=== PATIENT | male | born 1960 | race Caucasian/White ===

== ENCOUNTER → 2016-12-11 | Outpatient (CLI) | payer OTHER ==
[~2016-12-11] VITALS: Ht 175.3 cm; Wt 71.8 kg
[~2016-12-11] MED LIST: AMBIEN 10 MG TA10 MG PO; AMBIEN 5 MG TABL5 M1 PO; ASA81BEC; EMBEDA ER 50-21 EACH PO; FENTANYL PA50 MCG/HR TRANSDERM; FLOMAX0.4 MG PO; LEVOTHYROXIN0.025 MG PO; LEXAPRO20 MG PO; LIDODERM 5%1 PATC1 TRANSDERM; LYRICA 75 MG CA75 MG PO; LYRICA150 MG PO; METHADONE HCL 110 M1 PO; METOPROLOL SUCC25 M1 PO; MIRTAZAPINE15 M2 PO; NEXIUM40 MG PO; OXYCODONE PO; OXYCODONE-ACET1 EAC2 PO; OXYCODONE-ACET1 EACH PO; OXYCONTIN20 M1 PO; OXYCONTIN30 MG PO; OXYCONTIN60 MG PO; PROAIR HFA8.5 GM; REMERON15 MG PO; ROBAXIN 750 MG750 M1 PO; TOPAMAX 25 MG T25 M1 PO; TOPAMAX100 MG PO; TRAZODONE HCL50 MG PO; VENTOLIN HFA 1818 GM INH; ZOLOFT50 MG PO
--- NOTE | ~2016-12-11 | HPC ---
[facility] [place] [address] PAIN MANAGEMENT CONSULTATION Name: LYLY BHARDWAJ Room #: REG [facility] Mami.#: [id number] Admission: 12/11/16 Attend Phys: Lenin Cedeno MD Discharge: Date of : 60 Report #: [id number] THIS REPORT FOR: //name// CC: Arvind Cedeno DATE OF SERVICE: 12/11/2016 Followup visit for cervical radiculopathy. The patient has had 2 anterior cervical diskectomies and fusions. First was a 3-level fusion; C3, C4 and C5. The second was a C7-T1 fusion. He has had persistent pain in his neck with radiating symptoms down into the shoulders and arms. Pain is severe; today, it is 7/10. He has had previous success with epidural injections when the pain becomes severe. He is having difficulty with the use of his arms. Comorbidities include hypertension, angina, dyspnea on exertion, headaches, history of depression and nervousness and COPD. He has a pain stimulator for occipital neuralgia. MEDICATIONS: OxyContin 30 mg b.i.d., albuterol, levothyroxine, Lyrica 75 mg t.i.d., zolpidem, sertraline, omeprazole, tamsulosin, Topamax and metoprolol. PHYSICAL EXAMINATION: GENERAL: This is a very pleasant, easygoing gentleman. He is here today with his . He answers questions clearly. He does not appear overmedicated. He is in some distress. VITAL SIGNS: His blood pressure is 127/77, heart rate 70 and respirations 16. Five feet 9, 158 pounds. BMI is 23. NEUROLOGIC: He moves from a sitting to standing position, ambulates with antalgic features. He has mild spasticity. NECK: Examination of the neck reveals decreased range of motion in flexion, extension and rotation. He has tenderness posteriorly. There is a reduction in range of motion with lateral tilt. CHEST: Clear to auscultation. CARDIAC: Regular rate and rhythm. EXTREMITIES: Free of edema. Peripheral pulses are difficult to palpate. He has hyperreflexia in the lower extremities on the right to clonus. He is hyperreflexic on the left, without clonus. IMPRESSION: Cervicalgia with neuropathy, status post anterior cervical diskectomy and fusion. He now also has cervical radicular symptoms radiating down into the arms and shoulders. RECOMMENDATIONS: [address] [address] PAIN MANAGEMENT CONSULTATION Name: LYLY BHARDWAJ Room #: REG CLI [facility]#: [id number] Admission: 12/11/16 Attend Phys: Lenin Cedeno MD Discharge: Date of : 60 Report #: [id number] 1. I would like to take him off of OxyContin and try him on methadone 10 mg, one to one-half tablets daily is an initiating dose. We will adjust dose as necessary following. 2. Cervical epidural injection under fluoroscopic guidance. DESCRIPTION OF PROCEDURE: He was taken to the fluoroscopic suite for treatment and placed prone. Skin prepped with ChloraPrep. Skin anesthetized over C7-T1. A 20-gauge Tuohy epidural needle was advanced in the epidural space using loss of resistance. An excellent epidurogram was achieved with 1 mL of Omnipaque and then I followed that with 3 mL of 0.5% lidocaine mixed with 80 mg of triamcinolone. He tolerated the procedure well. He was taken to the recovery room for short observation. His pain score was 0 at discharge. He will call the clinic with any questions about dosing with his methadone. He is to stop his OxyContin today and initiate his methadone immediately. We will follow up carefully in 1 month. By: [id number] Lenin Cedeno MD /nt
[2016-12-11 09:05] VITALS: BP 126/77
== END | disposition home or self-care (01) ==
LOC: PAIN 06:39
DX: M54.12 Radiculopathy, cervical region (principal); I10 Essential (primary) hypertension; F32.9 Major depressive disorder, single episode, unspecified; J44.9 Chronic obstructive pulmonary disease, unspecified; M54.81 Occipital neuralgia; F17.210 Nicotine dependence, cigarettes, uncomplicated; Z98.890 Other specified postprocedural states

== ENCOUNTER → 2017-01-08 | Outpatient (CLI) | payer OTHER ==
[~2017-01-08] VITALS: Ht 175.3 cm; Wt 72.6 kg
--- NOTE | ~2017-01-08 | EKG ---
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
--- NOTE | ~2017-01-08 | HPC ---
[facility] [address] [place] [address] PAIN MANAGEMENT CONSULTATION Name: LYLY BHARDWAJ [facility] [id number] Admission: 01/08/17 Attend Phys: Lenin Cedeno MD Discharge: Date of : 60 Report #: [id number] THIS REPORT FOR: //name// CC: IDALMIS Cedeno DATE OF SERVICE: 01/08/2017 Followup visit for cervical radiculopathy, chronic. The patient returns to pain clinic today and is doing extremely well. I took him off of long-acting oxycodone and placed him on methadone. Our initial dose looked was perfect. One 10 mg tablet in the morning, 5 mg at noon and one in the evening. With that, his pain has been reduced by 80%. He has denied any significant side effects. He has taken no additional breakthrough medication. He continues on Lyrica, but would like to taper off of that given his good response to initiation of methadone. We had given him 50 mg tablet to start with twice a day, then once a day and then off. During that trial of tapering he can determine whether the combination of medications is providing good relief. The patient scores his pain today to 7, but it is a new pain. He apparently tripped fell and hit himself on the chest where he has a battery for his suboccipital stimulator. I think he sustained contusion to the ribcage and that is the only place that he has pain right now. His typical neck and shoulder pain is practically nonexistent. MEDICATIONS: In addition to methadone as described above and the Lyrica at 75 mg t.i.d. include mirtazapine, zolpidem, sertraline, omeprazole, tamsulosin, Topamax, metoprolol. PHYSICAL EXAMINATION: GENERAL: He looks great. He has got a haircut. He is well groomed. VITAL SIGNS: His blood pressure is 159/90, heart rate 64. BMI 23.6. NEUROLOGIC: Cervical range of motion is performed without increasing pain in the neck, there is minimal tenderness over the neck. He has some pain radiating down into both arms, but this is dull and moderate. Good range of motion of the arms and shoulders joints is noted. His chest is clear with bradycardia. Localized tenderness of the chest wall is noted. This is just below his pulse generator in the left chest. EXTREMITIES: Free of edema. Continues to show hyperreflexia in the lower extremities bilaterally. IMPRESSION: 1. Cervicalgia with myelopathy, status post anterior cervical diskectomy and [address] [address] PAIN MANAGEMENT CONSULTATION Name: LYLY BHARDWAJ Room #: REG [facility] ElsaEliane#: [id number] Admission: 01/08/17 Attend Phys: Lenin Cedeno MD Discharge: Date of : 60 Report #: [id number]. 2. Initiation of methadone and high-risk medication. Management of high-risk medication with good response to methadone. An electrocardiogram was ordered, which showed no lengthening of the QT interval. 3. Contusion left chest wall. PLAN: 1. Continue methadone. 2. Follow up as needed in 3 months. 3. Opioid contract was reviewed, the importance of safeguarding all medications, taking medications as directed by one physician and one pharmacy. <ELECTRONICALLY SIGNED> By: Lenin Cedeno MD 01/30/17 1027 1537 0142 Lenin Cedeno MD /nt
[2017-01-08 11:11] VITALS: BP 159/90
== END | disposition home or self-care (01) ==
LOC: PAIN 06:45
DX: M54.12 Radiculopathy, cervical region (principal); G89.29 Other chronic pain; S20.212A Contusion of left front wall of thorax, initial encounter; F17.200 Nicotine dependence, unspecified, uncomplicated; X58.XXXA Exposure to other specified factors, initial encounter; Y93.89 Activity, other specified; Y92.89 Other specified places as the place of occurrence of the external cause; Y99.8 Other external cause status; Z98.890 Other specified postprocedural states

== ENCOUNTER → 2017-04-06 | Outpatient (CLI) | payer OTHER ==
[~2017-04-06] VITALS: Ht 175.3 cm; Wt 66.4 kg
[~2017-04-06] MED LIST changes: +NITROGLYCERIN0.4 MG SUBLING
--- NOTE | ~2017-04-06 | HPC ---
[facility] [address] [place] [address] PAIN MANAGEMENT CONSULTATION Name: LYLY BHARDWAJ Room #: REG [facility] Beronica#: [id number] Admission: 04/06/17 Attend Phys: Lenin Cedeno MD Discharge: Date of : 60 Report #: [id number] THIS REPORT FOR: //name// CC: Arvind Van DATE OF SERVICE: 04/06/2017 DATE OF REGISTRATION: 04/06/2017 Followup visit for cervical radiculopathy. It is repeat visit for patient. Pain at an intensity of 7/10 in his neck, radiating to his shoulders bilaterally. It radiates down into both arms. He has had 2 cervical level fusions, 2 level fusion at C3, C4, C5 as well as a single level fusion of C7-T1. I have provided him with injections in between these 2 levels of fusion with good success in alleviating symptoms of radiculopathy. He is here today for an injection. His last cervical injection was performed in November. Does not want to have an additional surgery. He has lost substantial weight and has complained of abdominal pain. His abdominal tenderness is well and is going to undergo a CT scan next week. Always concerned when a 57-year-old loses weight unexpectedly. He has longstanding history of use of tobacco and alcohol, may well be playing a role. I have asked for studies to be sent to our clinic. In addition to injections which have been helpful, I provide him with methadone for neuropathic pain and radiculopathy. His current daily dose is 25 mg taken as 10 mg, 5 mg, 10 mg in t.i.d. dosing. Issues of opioid safeguarding have been discussed in great length. He has an opioid agreement. Other medicines include pregabalin, mirtazapine, zolpidem, sertraline, omeprazole, tamsulosin, Topamax and Toprol-XL. PHYSICAL EXAMINATION: Pleasant easy going gentleman. Blood pressure is 140/74, heart rate is 50, respirations are 14. Chest is clear. His abdomen is very tender throughout. Examination of the upper extremities reveals some weakness with radiology receptionist, biceps and triceps. He has nearly normal reflexes in the lower extremities today, which is interesting since his previous reflexes were hyperreflexic. IMPRESSION: Cervical radiculopathy, status post 2-level fusion and 3-level fusion. RECOMMENDATIONS: Cervical epidural injection under fluoroscopic guidance. [address] [address] PAIN MANAGEMENT CONSULTATION Name: LYLY BHARDWAJ Room #: REG CLI Preet#: [id number] Admission: 04/06/17 Attend Phys: Lenin Cedeno MD Discharge: Date of : 60 Report #: [id number] DESCRIPTION OF PROCEDURE: He was taken to fluoroscopic suite for treatment, placed prone, skin prepped with ChloraPrep. Skin anesthetized over C6-C7. A 20-gauge Tuohy epidural needle advanced in the epidural space with loss of resistance technique. No blood or CSF aspirated. A 1 mL of Omnipaque injected with spread of dye observed in the epidural space followed by 3 mL of 0.5% lidocaine mixed with 80 mg of triamcinolone. He tolerated the procedure well. He was observed for 45 minutes and discharged. Follow up as needed. By: [id number] Lenin Cedeno MD /nt
[2017-04-06 10:06] VITALS: BP 102/66
== END ==
LOC: PAIN 06:38
DX: M54.12 Radiculopathy, cervical region (principal); I10 Essential (primary) hypertension; F17.200 Nicotine dependence, unspecified, uncomplicated; F32.9 Major depressive disorder, single episode, unspecified; Z98.1 Arthrodesis status; Z79.899 Other long term (current) drug therapy

== ENCOUNTER → 2017-07-09 | Outpatient (CLI) | payer OTHER ==
[~2017-07-09] VITALS: Ht 175.3 cm; Wt 62.3 kg
[~2017-07-09] MED LIST changes: +BAYER CHEWABLE81 MG PO; +REGLAN 10 MG TA10 MG PO
--- NOTE | ~2017-07-09 | HPC ---
[facility] [place] [address] PAIN MANAGEMENT CONSULTATION Name: LYLY BHARDWAJ Room #: REG CL Mami.#: [id number] Admission: 07/09/17 Attend Phys: Lenin Cedeno MD Discharge: Date of : 60 Report #: [id number] THIS REPORT FOR: //name// CC: Arvind Cedeno DATE OF SERVICE: 07/09/2017 Followup visit for management of chronic cervical pain with radiculopathy as well as low back pain with radiculopathy. The patient returns to pain clinic today in followup for medication management. He has had numerous spinal problems and I have followed him carefully for medication management. I have been concerned about weight loss and again today, we discussed this issue in some detail. I have asked for him to continue following closely with his primary care physician and monitoring his weight. He has had some studies done, although I have not been able to obtain the results of chest x-ray as well as an abdominal scan. He has also been checked for prostate cancer as well. He continues to receive reasonable pain relief from his medication. He is on methadone 10 mg 3 times daily for a total of 30 mg and this has provided pain relief for both the mechanical as well as neuropathic pain without significant side effects. I do not believe his weight loss is related to his opioid use. We have discussed alcohol at each visit. The combination of alcohol along with methadone should be avoided. MEDICATIONS: Other centrally acting medications include mirtazapine, pregabalin, zolpidem, sertraline. He takes omeprazole, levothyroxine, tamsulosin, Topamax and Toprol. Multiple medications and polypharmacy may be playing a role in his weight loss. PHYSICAL EXAMINATION: GENERAL: He is pleasant, alert and oriented. No signs of overmedication, depression or anxiety. The patient ____pleasant. Weight loss is evident. Weight is noted in the chart. VITAL SIGNS: Blood pressure is 135/80, heart rate is 65, respirations are 16. CHEST: Clear. ABDOMEN: Remains tender as it was at his previous visit. EXTREMITIES: He has weakness of the upper extremities, particularly with social service technician. Reflexes 2-3+ bilaterally upper and lower extremities. IMPRESSION: 1. Chronic intractable low back pain and cervical radiculopathy, status post multilevel fusion. [address] [address] PAIN MANAGEMENT CONSULTATION Name: LYLY BHARDWAJ [facility] #[facility] [place]#: [id number] Admission: 07/09/17 Attend Phys: Lenin Cedeno MD Discharge: Date of : 60 Report #: [id number] 2. Management of high risk medication. PLAN: I have renewed his medications for 3 months under terms of our opioid agreement. We stressed the importance of safeguarding all medications and I have reviewed with him the CDC guidelines and his opioid agreement. He will safely use his medicines and we will try to assist with any recognized side effects. Follow up in 3 months. By: 1243 1332 Lenin Cedeno MD /oc
[2017-07-09 12:50] VITALS: BP 132/73
== END | disposition home or self-care (01) ==
LOC: PAIN 06:16
DX: M54.12 Radiculopathy, cervical region (principal); F17.210 Nicotine dependence, cigarettes, uncomplicated

== ENCOUNTER 2017-07-23 13:09 | Emergency (ER) | payer OTHER ==
[~2017-07-23] VITALS: Ht 175.3 cm; Wt 61.2 kg
--- NOTE | ~2017-07-23 | EKG ---
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
[~2017-07-23 13:09] MED LIST changes: -REGLAN 10 MG TA10 MG PO
[2017-07-23 14:14] LABS: BASOPHILS 0.4 % (0.0-2.0); EOSINOPHILS 2.6 % (0.0-3.0); HEMATOCRIT 39.7 % (42.0-52.0); HEMOGLOBIN 13.8 gm/dL (14.0-18.0); MCH 33.1 pg (26.0-34.0); MCHC 34.8 g/dL (28.0-37.0); MCV 95.1 fL (80.0-100.0); PLATELET COUNT 121 thou/uL (150-400); RBC 4.17 mil/uL (4.50-6.00); RDW 13.7 % (10.5-14.5); WBC 6.6 thou/uL (4.0-11.0)
[2017-07-23 14:15] LABS: MANUAL DIFF NO
[2017-07-23 14:30] LABS: ANION GAP 2 mmol/L (7-16); BUN 11 mg/dL (7-18); CALCIUM 8.6 mg/dL (8.5-10.1); CHLORIDE 105 mmol/L (98-107); CO2 29 mmol/L (21-32); CREATININE 0.8 mg/dL (0.7-1.3); GLUCOSE 107 mg/dL (74-106); POTASSIUM 3.8 mmol/L (3.5-5.1); SODIUM 136 mmol/L (136-145)
[2017-07-23 14:39] LABS: ALBUMIN 3.3 g/dL (3.4-5.0); ALKALINE PHOSPHATASE 67 U/L (46-116); SGOT 12 U/L (15-37); SGPT 18 U/L (30-65); TOTAL BILIRUBIN 0.3 mg/dL (<0.1-1.0); TOTAL PROTEIN 6.2 g/dL (6.4-8.2); TROPONIN-I < 0.04 ng/mL (<0.04-0.07)
[2017-07-23] MEDS ORDERED: REGLAN 10 MG TA10 MG PO ×2 (15:56→15:57)
== END 2017-07-23 16:09 | disposition home or self-care (01) ==
LOC: ER 13:09
PROVIDERS: Physician Assistant
DX: G89.29 Other chronic pain (principal); R13.10 Dysphagia, unspecified; F17.210 Nicotine dependence, cigarettes, uncomplicated; I10 Essential (primary) hypertension; E78.5 Hyperlipidemia, unspecified; J44.9 Chronic obstructive pulmonary disease, unspecified; Z88.0 Allergy status to penicillin; Z98.890 Other specified postprocedural states; Z95.9 Presence of cardiac and vascular implant and graft, unspecified

== ENCOUNTER → 2017-10-15 | Outpatient (CLI) | payer OTHER ==
[~2017-10-15] VITALS: Ht 175.3 cm; Wt 64.0 kg
[~2017-10-15] MED LIST changes: +REGLAN 10 MG TA10 MG PO
--- NOTE | ~2017-10-15 | HPC ---
[facility] [address] [address] PAIN MANAGEMENT CONSULTATION Name: LYLY BHARDWAJ Room #: REG [facility].#: [id number] Admission: 10/15/17 Attend Phys: Lenin Cedeno MD Discharge: Date of : 60 Report #: [id number] THIS REPORT FOR: //name// CC: Dr. Arvind Cedeno DATE OF SERVICE: 10/15/2017 Follow up visit for chronic intractable cervicalgia with radiculopathy status post anterior cervical diskectomy and fusion at 2 levels. The patient returns to pain clinic today for treatment of his cervical condition. In addition to providing with intermittent epidural injections in his neck, I provided him also with pain medication, which he has used cautiously and carefully. He has had 2 previous cervical epidural injections this year with good benefit. He also has a spinal cord stimulator, which has been used effectively for low back pain. The medication I provided for him is methadone. It has worked well with his neuropathic features 10 mg taken 2-1/2 tablets a day. I have agreed to increase that to 3 tablets a day for a total of 30 mg. He shown no misuse or abuse and has no significant side effects. He is on a written opioid agreement and has been periodically tested for other substances. I have talked to him often about safeguarding his medications, which he does. Medications were all reviewed and reconciled. There are other centrally acting medications. He has been given precautions about combinations and driving. His weight is down. He does not appear obese. BMI is 20.8. We have talked a bit about nutrition. He does not smoke and he remains active. He has some osteoarthritis that is managed with his medication, mostly in his upper extremities, shoulders, but some in his hips and knees as well. PHYSICAL EXAMINATION: He is a pleasant, outgoing jesús. He is alert and oriented, always positive. He has no signs of overmedication, depression or anxiety. Noted weight loss from previous visits was discussed and he is stabilized. His blood pressure is 102/62, heart rate 61. Moves from a sitting to standing position without difficulty. His ambulation is stable. His neck range of motion is markedly limited in flexion, extension and rotation. He has scars on his anterior neck from 2 previous diskectomies. He has cervical radicular symptoms with generalized weakness and pain into both arms that follows C6-C7 distribution. Reflexes 2-3+ bilaterally in upper and lower extremities. IMPRESSION: [facility] [address] [place] [address] PAIN MANAGEMENT CONSULTATION Name: LYLY BHRADWAJ Room #: REG CLI [facility]#: [id number] Admission: 10/15/17 Attend Phys: Lenin Cedeno MD Discharge: Date of : 60 Report #: [id number] 1. Chronic intractable low back pain. 2. Cervical radiculopathy, now more severe with radiating pain into both arms involving the C6-C7 distribution. 3. Management of high risk medication methadone. Time spent in consultation this morning was 25 minutes. PROCEDURE PERFORMED: Epidural steroid injection under fluoroscopic guidance. He was taken to fluoroscopic suite and placed in prone. Skin was prepped with ChloraPrep. Skin was anesthetized over the C5-C6 interspace. A 20-gauge Tuohy epidural needle was advanced at first attempt in the epidural space with loss of resistance. There was no blood or CSF aspirated. 1 mL of Omnipaque was injected with good spread of dye observed in the epidural space followed by 3 mL of 0.5% lidocaine mixed with 80 mg of triamcinolone. He tolerated the procedure well, was observed for 45 minutes and discharged. Follow up visit is as needed. By: [id number] Lenin Cedeno MD /nt
[2017-10-15 11:35] VITALS: BP 95/60
== END | disposition home or self-care (01) ==
LOC: PAIN 07-27 10:49
DX: M54.12 Radiculopathy, cervical region (principal); G89.29 Other chronic pain; F17.200 Nicotine dependence, unspecified, uncomplicated; Z79.891 Long term (current) use of opiate analgesic; Z98.890 Other specified postprocedural states; Z88.0 Allergy status to penicillin; Z88.8 Allergy status to other drugs, medicaments and biological substances; Z79.82 Long term (current) use of aspirin; Z79.899 Other long term (current) drug therapy

== ENCOUNTER → 2017-12-31 | Outpatient (CLI) | payer OTHER ==
[~2017-12-31] VITALS: Ht 175.3 cm; Wt 64.0 kg
[~2017-12-31] MED LIST changes: +ATORVASTATIN CA40 MG PO; +FOLIC ACID1 MG PO; +LASIX 20 MG TAB20 MG PO; +LIDOCAINE1 EACH TP; +LYRICA 50 MG50 MG PO; -LYRICA 75 MG CA75 MG PO; +PANCREAZE DR 41 EACH PO; +SENNA8.6 MG PO; +TOPROL XL25 MG PO; +VITAMIN B-1100 M1 PO
--- NOTE | ~2017-12-31 | HPC ---
[facility] [place] [address] [place] [address] PAIN MANAGEMENT CONSULTATION Name: LYLY BHARDWAJ [facility]: [facility] [id number] Admission: 12/31/17 Attend Phys: Lenin Cedeno MD Discharge: Date of : 60 Report #: [id number] THIS REPORT FOR: //name// CC: Arvind Robbins DO Lenin Cedeno DATE OF SERVICE: 12/31/2017 Followup visit for low back pain with radiculopathy. The patient is here today requesting an epidural injection. He has responded nicely to his treatments and his last injection performed in our clinic was over 3 months ago. Pain has recently increased in severity. He describes his pain in his low back radiating into his legs. He has continued to lose some weight. Dr. Robbins has him scheduled for a colonoscopy in the upcoming months. He complains of pain all over in addition to his back. VITAL SIGNS: Blood pressure 110/70, heart rate is 60, respirations 96. Pain intensity 8/10. He is using a cane and is a fall risk. He moves from sitting to standing position and walks with a slightly unsteady gait. IMPRESSION: 1. Chronic low back pain with radiculopathy. 2. Cervical radiculopathy, currently under reasonable management. 3. Management of high risk medication, methadone. PROCEDURE: Epidural steroid injection under fluoroscopic guidance. He was taken to the fluoroscopic suite for treatment, placed prone, skin prepped with ChloraPrep and anesthetized. A 20-gauge Tuohy epidural needle advanced in the epidural space with loss of resistance technique. There was no blood or CSF aspirated. 1 mL of Omnipaque injected. Good spread of dye observed in the epidural space and then followed by 3 mL of 0.5% lidocaine mixed with 80 mg triamcinolone. He tolerated the procedure well and was observed for 45 minutes and discharged. Follow up as needed. <ELECTRONICALLY SIGNED> By: Lenin Cedeno MD 02/01/18 1408 1443 1926 Lenin Cedeno MD /nt
[2017-12-31 12:53] VITALS: BP 110/70
== END | disposition home or self-care (01) ==
LOC: PAIN 11-16 07:12
DX: M54.16 Radiculopathy, lumbar region (principal); G89.29 Other chronic pain; M54.12 Radiculopathy, cervical region; F17.210 Nicotine dependence, cigarettes, uncomplicated; Z88.0 Allergy status to penicillin; Z79.891 Long term (current) use of opiate analgesic; Z88.8 Allergy status to other drugs, medicaments and biological substances; Z79.82 Long term (current) use of aspirin; Z79.899 Other long term (current) drug therapy

== ENCOUNTER → 2018-03-08 | Outpatient (CLI) | payer OTHER ==
[~2018-03-08] VITALS: Ht 175.3 cm; Wt 63.1 kg
[~2018-03-08] MED LIST changes: -LIDOCAINE1 EACH TP; -SENNA8.6 MG PO
--- NOTE | ~2018-03-08 | HPC ---
[facility] [place] [address] PAIN MANAGEMENT CONSULTATION Name: LYLY BHARDWAJ [id number] Admission: 03/08/18 Attend Phys: Lenin Cedeno MD Discharge: Date of : 60 Report #: [id number] THIS REPORT FOR: //name// CC: FAM physician/PCP Arvind Cedeno DATE OF SERVICE: 03/08/2018 Followup visit for chronic low back pain with radiculopathy. The patient returns to the pain clinic today for refill of medication. He is continuing to lose weight. His BMI is down to 20.5. He had a myocardial infarction within the last 3 months. He has been followed closely by the physicians at [facility]. Dr. Suarez is his supervisor of officials. He continues to complain of pain at 7/10, sharp, aching and throbbing, radiating into his low back, is worse with walking and other activities. The patient has COPD, he continues to smoke, but he has given up alcohol since his heart attack. He is treated also for hypertension. MEDICATIONS: Include: Metoprolol, atorvastatin, Lasix, thiamine, ____, methadone as prescribed by our clinic 10 mg 3 times daily, Lyrica, aspirin, nitroglycerin, levothyroxine, albuterol, mirtazapine, zolpidem, sertraline, tamsulosin, Topamax and metoprolol. ALLERGIES: PENICILLIN AND BACLOFEN. IMPRESSION: 1. Chronic low back pain and cervicalgia with radiculopathy. 2. Management of methadone under terms of an opioid agreement. PLAN: I have renewed his medications. Reviewed the CDC guidelines and his responsibilities under agreement. We will plan to see him back in the pain clinic in 3 months. He will carefully safeguard his medications. By: [id number] Lenin Cedeno MD /nt
[2018-03-08 13:09] VITALS: BP 103/61
== END ==
LOC: PAIN 07:12
DX: M54.12 Radiculopathy, cervical region (principal); M54.5 Low back pain; G89.29 Other chronic pain; I10 Essential (primary) hypertension; J44.9 Chronic obstructive pulmonary disease, unspecified; I21.9 Acute myocardial infarction, unspecified

== ENCOUNTER → 2018-08-02 | Outpatient (CLI) | payer OTHER ==
[~2018-08-02] VITALS: Ht 175.3 cm; Wt 62.1 kg
[~2018-08-02] MED LIST changes: +LIDOCAINE1 EACH TP; +SENNA8.6 MG PO
[2018-08-02 10:12] VITALS: BP 101/58
== END ==
LOC: PAIN 07:02
DX: M54.2 Cervicalgia (principal); M54.5 Low back pain; G89.29 Other chronic pain; F17.210 Nicotine dependence, cigarettes, uncomplicated; F12.90 Cannabis use, unspecified, uncomplicated; M16.0 Bilateral primary osteoarthritis of hip; M19.90 Unspecified osteoarthritis, unspecified site; Z79.891 Long term (current) use of opiate analgesic; Z79.899 Other long term (current) drug therapy; Z72.89 Other problems related to lifestyle

== ENCOUNTER → 2018-10-04 | Outpatient (CLI) | payer OTHER ==
[~2018-10-04] VITALS: Ht 175.3 cm; Wt 63.7 kg
--- NOTE | ~2018-10-04 | HPC ---
[facility] [address] [place] [address] PAIN MANAGEMENT CONSULTATION Name: LYLY BHARDWAJ [id number] Admission: 10/04/18 Attend Phys: Tila Faye Discharge: Date of : 60 Report #: [id number] THIS REPORT FOR: //name// CC: Tila Robbins DATE OF SERVICE: 10/04/2018 Followup visit today for chronic intractable pain. HISTORY OF PRESENT ILLNESS: The patient was seen today as a followup visit for his medication refill for his chronic intractable pain. He tells me that he is doing well on his methadone, he takes 10 mg in the morning and 10 mg at 2:00 and then 10 mg again at 9:00 in the evening and tells me that his pain is an average of 7-8 taking his medicines 3 times a day. His hips, neck and low back are all hurting; it is like a constant dull ache, worse with activity and walking and the medication and using cold does help. He tells me that he does have some daytime sleepiness, but he takes a scheduled nap every afternoon around 1:00. He has been having some constipation issues. He does take Senokot. He has tried MiraLax in the past, but he tells me that MiraLax works too well for him. The patient would like to see refill of his current medications today. ALLERGIES: TO PENICILLIN AND BACLOFEN. LIST OF CURRENT MEDICATIONS: Lyrica 50 mg twice a day, methadone 10 mg 3 times a day, Senokot daily, Lidoderm patch as needed, Pancrease 3 times a day, folic acid daily, metoprolol 25 mg a half of one daily, atorvastatin 40 mg at bedtime, Lasix 20 mg daily, thiamine daily, aspirin 81 mg daily, Synthroid 25 mcg daily, albuterol inhaler as needed, Remeron 30 mg at bedtime, Ambien 10 mg at bedtime, Zoloft 50 mg daily, Nexium 40 mg daily, Flomax 0.4 mg daily and Topamax 100 mg twice a day. PQRS: The patient does have a history of osteoarthritis in his back, neck and hips. Denies rheumatoid arthritis. Height is 5 feet 9 inches, weight is 160 pounds, BMI is 20.7. Vital signs: Blood pressure 125/71, pulse is 71, respirations 14, oxygen sat is 96%, pain score 7-8. Fall risk: He denies dizziness. Does not need help walking or standing, has not fallen in the last 3 months. The patient's blood thinners, he denies. He has a history of hypertension. Opioid therapy is greater than 6 weeks; therefore, an opioid signed contract is on the chart. His risk assessment tool is moderate and his functional assessment is 52/70. SOCIAL HISTORY: States he has used marijuana in the past 3 months. He denies alcohol use and does smoke about a pack a day. I did talk to the patient on counseling his marijuana use and told him that according to his opioid contract, he needs to refrain from using this. We also checked a prescription monitoring [address] [address] PAIN MANAGEMENT CONSULTATION Name: LYLY BHARDWAJ Room #: REG ZURI Loco#: [id number] Admission: 10/04/18 Attend Phys: Tila Faye Discharge: Date of : 60 Report #: [id number] system and the patient has been filling appropriately from doctors within our practice. Next visit, we will check a urine drug screen on this patient. PHYSICAL EXAMINATION: GENERAL: This is a well-developed gentleman of 58 years old with a low BMI, slightly anorexic. He is alert and oriented. His affect is appropriate. HEENT: Normocephalic, atraumatic. Extraocular eye muscles are intact. Mucous membranes are moist. CHEST: He has a suboccipital stimulator in his left chest wall that is visual in his upper chest. MUSCULOSKELETAL: Previous scars in his neck from previous surgeries and his legs appear to be judged at 5/5 in all major muscle groups. He is using a cane today. No significant weakness at this time. IMPRESSION: 1. Chronic intractable cervical radiculopathy. 2. Low back pain. 3. Myofascial pain. 4. Medical management with high risk medicine under terms of an opioid agreement. We reviewed the fact that opiate medications are being used to provide analgesia adequate to support activities of daily living, not attempting to achieve a specific pain score on the 0-10 Visual Analog Scale. The current opiate medications are providing sufficient analgesia to allow the patient to participate in activities of daily living. The patient is not exhibiting any aberrant behavior suggestive of drug diversion. The patient is not having any adverse reactions to medications. The patient is not suffering from daytime somnolence or mental acuity changes. The patient is managing opiate-induced constipation with appropriate reij-wqq-tupaxkn agents and dietary considerations. The patient was counseled on concern for caution with operating a motor vehicle while using opiate medications. A physical exam was performed and the patient's functional status was evaluated. All patients with back pain were advised against the bed rest greater than 4 days and were advised to return to normal activities. Pain score assessment was noted and the treatment plan was reviewed with the patient. All current medications, both prescribed and OTC were reviewed and reconciled on the electronic medical record. Tobacco screening was accomplished and smoking cessation was advised when indicated. BMI was noted and diet/exercise modification was recommended for all patients following outside normal parameters. I reviewed with the patient today their responsibilities to safeguard prescription medications, reviewed their responsibility to utilize medications only as prescribed by the physician. They are to seek and receive pain [facility] [address] [place] [address] PAIN MANAGEMENT CONSULTATION Name: LYLY BHARDWAJ Room #: REG [place] Loco#: [id number] Admission: 10/04/18 Attend Phys: Tila Faye Discharge: Date of : 60 Report #: [id number] medications only from 1 physician group ( [facility]). They are to use 1 pharmacy and keep the clinic informed if they change pharmacies. Their responsibilities include making followup visits in a timely fashion and to avoid abrupt discontinuation of medication usage. Their responsibilities further include bringing their medications (bottles from the pharmacy with residual pills) to the visit for possible confirmation of pill counts and the patient understands it is their responsibility to submit to random drug screens to ensure both that the medications prescribed are present, and that no other controlled substances are present. All prescriptions provided today were generated electronically. PLAN: 1. We discussed treatment options with this patient. We decided to continue his methadone for 2 months. Scripts given today were 10 mg 1 tablet 3 times a day, #90 to be released today and 4-week. 2. The patient does take Lyrica, but no script is needed at this time. He had been giving 3-month prescriptions each 2-month visit, so he has refills of this medication. 3. We discussed the patient's constipation stating that he does take senna, but it gets expensive and so, he does have problems with constipation. I discussed MiraLax with him. He tells me he has been taking that in the past, but it goes right through him per his words and then, he has diarrhea. The patient encouraged to try the MiraLax, but take half of a capsule and see if that helps with his constipation and see if he can have a more regular bowel movements by using the medicine that way. The patient is agreeable to try that medicine. 4. The patient was seen in followup today, will be seen again in 2 months. The patient seen under the collaboration with Dr. Lenin Cedeno. The patient will make an appointment with Dr. Cedeno in 2 months. At that time, we would do a drug screen on the patient since there has not been one in the past year on him on the chart. <ELECTRONICALLY SIGNED> By: Tila Faye 10/05/18 [id number] Tila Faye /oc
[2018-10-04 10:04] VITALS: BP 125/71
== END ==
LOC: PAIN 00:35
DX: M54.12 Radiculopathy, cervical region (principal); M54.5 Low back pain; G89.4 Chronic pain syndrome; M79.18 Myalgia, other site; Z79.899 Other long term (current) drug therapy; Z79.891 Long term (current) use of opiate analgesic

== ENCOUNTER → 2018-12-03 | Outpatient (CLI) | payer OTHER ==
[~2018-12-03] VITALS: Ht 175.3 cm; Wt 63.8 kg
[2018-12-03 10:10] VITALS: BP 100/65
--- NOTE | 2018-12-03 10:21 | NUR ---
Pain Clinic Assessment: 1. History of Osteoarthritis: back neck hips History of Rheumatoid Arthritis: Not Applicable 2. Height: 5 ft. 9 in. 175.3 cm. Weight: 140.6 lb. oz. 63.776 kg. Patient's BMI: 20.8 3. Vital Signs: BP: 100/65 Pulse: 70 Resp: 14 Temp: 02 Sat: 98 ECG Mon: 4. Pain Intensity: 7 5. Fall Risk: Dizziness: Y Needs help standing or walking: Y Fallen in the last 3 months: Y Fall risk comments: 6. Patient on Blood Thinner: None 7. History of Hypertension: Y 8. Opioid Therapy greater than 6 weeks: Y Opiate Contract Signed: 04/18/16 9. Risk Assessment Tool Provided: 7-mod risk 10. Functional Assessment Tool: 11. Recreational Drug Use: Current within past 3 mos Drug Type: MARAJAUNA Tobacco Use: Current Every Day Smoker Tobacco Type: Cigarettes Amount or Packs/day: 1 PACK How Many Years: Alcohol Use: No Frequency: Quant:
--- NOTE | 2018-12-06 12:38 | HPC ---
[facility] [address] [place] [address] PAIN MANAGEMENT CONSULTATION Name: LYLY BHARDWAJ Room #: REG [facility] Beronica#: [id number] Admission: 12/03/18 Attend Phys: Tila Faye Discharge: Date of : 60 Report #: [id number] THIS REPORT FOR: //name// CC: Tila Robbins DATE OF SERVICE: 12/03/2018 CHIEF COMPLAINT: Chronic intractable pain. HISTORY OF PRESENT ILLNESS: The patient returns to the pain clinic today for followup for his medication refill for his chronic intractable back pain. He tells me that he was hoping to get a injection that I had informed him when he was unable to make his appointment yesterday that he would not be getting a injection today on his medications and the patient understands. He then complains of bilateral groin pain where his lymph nodes are involved. He tells me that he recently has finished an antibiotic, finishing it on Thursday. I did inform him that that would be another reason why we could not give an injection, he needs to be off his antibiotics for at least a week and if he has an ongoing infection would not be good to give him a steroid injection. The patient verbalizes understanding of this medication. He tells me he is going to see urologist at in December but has continued to have ongoing pain in his groins. He also has low back pain and neck pain. He rates his pain score a 7/10 today, worse with walking. His medications are helpful except for this groin issues. ALLERGIES: PENICILLIN and BACLOFEN. MEDICATIONS: Current list of medications: Lyrica 50 mg b.i.d., methadone 10 mg 3 times a day, Senokot daily, Lidoderm patches as needed, pancrease 3 times a day, folic acid daily, Toprol 25 mg half a tablet daily, Lipitor 40 mg at bedtime, Lasix 20 mg daily, thiamine 100 mg daily, aspirin 81 mg daily, nitro sublingual as needed, Synthroid 25 mcg daily, albuterol inhaler as needed, Remeron 30 mg at bedtime, Ambien 10 mg at bedtime, Zoloft 50 mg daily, Nexium 40 mg daily, Flomax 0.4 mg daily and Topamax 100 mg b.i.d. PQRS: 1. He does have a history of osteoarthritis in his lower back, neck and hips. He denies rheumatoid arthritis. 2. Height is 5 feet 9 inches, weight is 140 and BMI is 20. 3. Vital signs: Blood pressure 100/65, pulse is 70, respirations 14 and oxygen sat is 98. 4. Pain score is 7/10. 5. Fall risk, does complain of some dizziness, does not need help walking or standing. He does use a cane and has not fallen in the last 3 months. 6. Blood thinner, he denies. He does take antihypertensive medications. [address] [address] PAIN MANAGEMENT CONSULTATION Name: LYLY BHARDWAJ Room #: REG Z[facility] Loco#: [id number] Admission: 12/03/18 Attend Phys: Tila Faye Discharge: Date of : 60 Report #: [id number] 7. Opioid therapy is greater than 6 weeks; therefore, an opioid signed contract is on the chart. 8. Risk assessment as moderate. His functional assessment is 52/70. 9. Does admit to current within the last 3 months marijuana use. 10. Current smoker and does not drink alcohol. We did check the prescription monitoring system. The patient is filling appropriately with his medications and we will check buccal mucosal drug screen on this patient today since it has been yearly. He did admit to having had some marijuana in the past. We counseled him as to not be taking that medication along with his methadone. He tells me that he will try to stop the use of that marijuana. PHYSICAL EXAMINATION: GENERAL: This is a well-developed, well-nourished 58-year-old gentleman with a low BMI, slightly anorexic. He is alert and orientated. His affect is appropriate. HEENT: Normocephalic and atraumatic. Extraocular eye muscles are intact. Mucous membranes are moist. CHEST: He has suboccipital stimulator, was implanted in his left chest wall that is visible in his right chest. MUSCULOSKELETAL: Previous scars from his previous surgeries. His muscle strength is judged to be 5/5 in all major muscle groups. He is using a cane today. The patient does complain of enlarged lymph nodes in his groin and those were not examined. Presently, he does walk with an antalgic gait. IMPRESSION: 1. Chronic intractable cervical radiculopathy. 2. Low back pain. 3. Myofascial pain. 4. Bilateral groin pain. 5. Medical management, on high risk medication under terms of written opioid agreement. We reviewed the fact that opiate medications are being used to provide analgesia adequate to support activities of daily living, not attempting to achieve a specific pain score on the 0-10 Visual Analog Scale. The current opiate medications are providing sufficient analgesia to allow the patient to participate in activities of daily living. The patient is not exhibiting any aberrant behavior suggestive of drug diversion. The patient is not having any adverse reactions to medications. The patient is not suffering from daytime somnolence or mental acuity changes. The patient is managing opiate-induced constipation with appropriate agdo-jwz-ohlynaa agents and dietary considerations. The patient was counseled on concern for caution with operating a motor vehicle while using opiate medications. A physical exam was performed and the patient's functional status was evaluated. All patients with back pain were advised against the bed rest greater than 4 [facility] [address] [place] [address] PAIN MANAGEMENT CONSULTATION Name: LYLY BHARDWAJ Room #: REG [facility]..#: [id number] Admission: 12/03/18 Attend Phys: Tila Faye Discharge: Date of : 60 Report #: [id number] days and were advised to return to normal activities. Pain score assessment was noted and the treatment plan was reviewed with the patient. All current medications, both prescribed and OTC were reviewed and reconciled on the electronic medical record. Tobacco screening was accomplished and smoking cessation was advised when indicated. BMI was noted and diet/exercise modification was recommended for all patients following outside normal parameters. I reviewed with the patient today their responsibilities to safeguard prescription medications, reviewed their responsibility to utilize medications only as prescribed by the physician. They are to seek and receive pain medications only from 1 physician group ([facility]). They are to use 1 pharmacy and keep the clinic informed if they change pharmacies. Their responsibilities include making followup visits in a timely fashion and to avoid abrupt discontinuation of medication usage. Their responsibilities further include bringing their medications (bottles from the pharmacy with residual pills) to the visit for possible confirmation of pill counts and the patient understands it is their responsibility to submit to random drug screens to ensure both that the medications prescribed are present, and that no other controlled substances are present. All prescriptions provided today were generated electronically. PLAN: 1. We discussed treatment options with the patient today. He was requesting us to fill the medication that he had recently received in the ER at [facility] for his bilateral groin pain. It was determined this was Keflex. I told him that we were not able to refill that medication that he needed to call his primary care doctor and if it is ongoing, he needs to see them for an appointment. The patient had requested an epidural for this visit, which I informed him, he was unable to get due to the Dr. Cedeno not being here and also if he has an ongoing infection, I told him the risk of having an epidural would not be good. We do not want him to end up with other issues. The patient verbalizes understanding that he needs to be clear of infection before we do reschedule him for an epidural. 2. The patient tells me he has an appointment with her urologist at in December. I encouraged him to call and try to get on the cancellation list or to move up this appointment due to his recent ER visits and his ongoing lymph node involvement in his groin. The patient tells me that he will have his called the doctors. 3. Scripts given today for his methadone 10 mg t.i.d., #90 for refill today for an 8-week. Scripts given also for Lyrica 50 mg 1 b.i.d., quantity 180, which is a 3-month supply. 4.buccal drug screen was obtained today. The patient tells me it may be positive for marijuana. I encouraged him to that we would be unable to write for his medications if he continues to use marijuana. The patient verbalizes this understanding and tells me that he will stop using this medication that is [facility] [address] [place] [address] PAIN MANAGEMENT CONSULTATION Name: LYLY BHARDWAJ Room #: REG [facility] Beronica#: [id number] Admission: 12/03/18 Attend Phys: Tila Faye Discharge: Date of : 60 Report #: [id number] not approved. 5. The patient will be seen in 3 months' time period unless he decides to call for an epidural sooner. The patient verbalizes understanding. The patient was seen in collaboration with Dr. Lenin Cedeno today. <ELECTRONICALLY SIGNED> By: Tila Faye 12/06/18 1238 [id number] Tila Faye /nt
== END ==
LOC: PAIN 12-02 10:58
DX: M54.12 Radiculopathy, cervical region (principal); G89.4 Chronic pain syndrome; M79.18 Myalgia, other site; R10.31 Right lower quadrant pain; R10.32 Left lower quadrant pain; Z79.891 Long term (current) use of opiate analgesic; Z79.899 Other long term (current) drug therapy

== ENCOUNTER → 2019-01-03 | Outpatient (CLI) | payer OTHER ==
[~2019-01-03] VITALS: Ht 175.3 cm; Wt 65.3 kg
--- NOTE | ~2019-01-03 | HPC ---
[facility] [address] [place] [address] PAIN MANAGEMENT CONSULTATION Name: LYLY BHARDWAJ Room #: REG [facility].#: [id number] Admission: 01/03/19 ������������������ Attend Phys: Lenin Cedeno MD Discharge: ������������������ Date of : 60 Report #: [id number] THIS REPORT FOR: //name// CC: Arvind Cedeno DATE OF SERVICE: 01/03/2019 Followup visit for chronic low back pain with radiculopathy. The patient returns to the clinic today complaining of pain in his low back. He has had long-standing low back pain and cervicalgia with radiculopathy, both responding to injections. He is here today hopeful for an epidural injection. He scores his pain today as a 7/10. It is worse with standing and walking, relieved by medication and also uses an ice pack. He has always had good relief from epidural injections. PQRS review completed. This demonstrates that he has a history of osteoarthritis, involves multiple joints including back, hip and neck. He is not a fall risk. He is on no blood thinners, but has a history of hypertension. MEDICATIONS: All medications reviewed and reconciled from the electronic medical record. He is on an opioid agreement under the terms of our agreement. I provided him with methadone and Lyrica, which he has managed carefully with good results, improving his pain and he has no significant side effects. He safeguards his medications carefully per terms of our opioid agreement. I have confirmed his use and prescribing by the prescription drug monitoring program and we have completed a buccal drug testing, which are appropriate for medications prescribed. He has in the past suggested that when marijuana is legalized, he would like to use it for medicinal purposes. He continues to smoke cigarettes. I have discussed this with him and given him some counseling about the importance of tobacco cessation for the treatment of intractable pain as well as all other issues. PHYSICAL EXAMINATION: NEUROLOGIC: He is a pleasant fellow, moves from sitting to standing position and ambulates without difficulty. VITAL SIGNS: Blood pressure 149/68. His heart rate is 88. His BMI is 26. MUSCULOSKELETAL: Moves from sitting to standing position, ambulates to the table with a cane. He has an antalgic gait. He has pain across his low back. Positive straight leg raising is noted bilaterally. IMPRESSION: Low back pain with radiculopathy. Pain is worse on the left. [address] [address] PAIN MANAGEMENT CONSULTATION Name: LYLY BHARDWAJ Room #: REG [facility] Beronica#: [id number] Admission: 01/03/19 ������������������ Attend Phys: Lenin Cedeno MD Discharge: ������������������ Date of : 60 Report #: [id number] Numbness is more prominent on the right, in the L5 distribution. PROCEDURE AND RECOMMENDATION: Lumbar epidural injection L4-L5 under fluoroscopic guidance. DESCRIPTION OF PROCEDURE: He was taken to the fluoroscopic suite for treatment and placed prone. Skin prepped with ChloraPrep. Skin anesthetized over the L4-L5 interspace and a 20-gauge Tuohy epidural needle advanced into the epidural space with loss of resistance technique. No blood or CSF was aspirated. One mL of Omnipaque was injected. Good spread of dye observed in the epidural space, followed by 3 mL of 1% lidocaine mixed with 80 mg of triamcinolone. He tolerated the procedure well, was observed for 45 minutes and discharged. Follow up as needed. ��������������������������������������������� ���������������������������������������� By: ��������������������������������������������� [id number] Lenin Cedeno MD /nt
[2019-01-03 13:15] VITALS: BP 126/65
--- NOTE | 2019-01-03 13:17 | NUR ---
Pain Clinic Assessment: 1. History of Osteoarthritis: back neck hips History of Rheumatoid Arthritis: Not Applicable 2. Height: 5 ft. 9 in. 175.3 cm. Weight: 144.0 lb. oz. 65.318 kg. Patient's BMI: 21.3 3. Vital Signs: BP: 126/65 Pulse: 84 Resp: 16 Temp: 02 Sat: 97 ECG Mon: 4. Pain Intensity: 7 5. Fall Risk: Dizziness: N Needs help standing or walking: N Fallen in the last 3 months: Y Fall risk comments: 6. Patient on Blood Thinner: None 7. History of Hypertension: Y 8. Opioid Therapy greater than 6 weeks: Y Opiate Contract Signed: 04/18/16 9. Risk Assessment Tool Provided: 7-mod risk 10. Functional Assessment Tool: 11. Recreational Drug Use: Current within past 3 mos Drug Type: MARAJAUNA Tobacco Use: Current Every Day Smoker Tobacco Type: Cigarettes Amount or Packs/day: 1 PACK How Many Years: Alcohol Use: No Frequency: Quant:
== END | disposition home or self-care (01) ==
LOC: PAIN 06:56
DX: M54.16 Radiculopathy, lumbar region (principal); M19.90 Unspecified osteoarthritis, unspecified site; I10 Essential (primary) hypertension; Z79.891 Long term (current) use of opiate analgesic; F17.210 Nicotine dependence, cigarettes, uncomplicated; Z88.0 Allergy status to penicillin; Z88.8 Allergy status to other drugs, medicaments and biological substances; Z79.82 Long term (current) use of aspirin; Z79.899 Other long term (current) drug therapy

== ENCOUNTER → 2019-02-28 | Outpatient (CLI) | payer OTHER ==
[~2019-02-28] VITALS: Ht 172.7 cm; Wt 65.7 kg
[~2019-02-28] MED LIST changes: +BUPRENORPHIN-N1 EACH PO
--- NOTE | ~2019-02-28 | HPC ---
[facility] [place] [address] [place] [address] PAIN MANAGEMENT CONSULTATION Name: LYLY BHARDWAJ Room #: REG [facility] Bolaños.#: [id number] Admission: 02/28/19 ������������������ Attend Phys: Lenin Cedeno MD Discharge: ������������������ Date of : 60 Report #: [id number] THIS REPORT FOR: //name// CC: Arvind Robbins DO Lenin Cedeno DATE OF SERVICE: 02/28/2019 CHIEF COMPLAINT: Followup visit for chronic low back pain with radiculopathy. The patient returns to pain clinic today in followup for medication management. He is also here today for an epidural injection, which has provided much improvement and allowed his pain levels to drop dramatically for months at a time. We have been concerned about his weight loss. He has shown some steady declines over the course of the last year or two. I reached back into our records to 04/2015. His BMI at that time was 25.4. His BMI as measured today in the clinic was 22.0. Although, his weight loss has not been dramatic, it has been notable and he has been somewhat anorexic. There is some question about whether or not his methadone may be contributing to this anorexia. We have seen this in other patients. REVIEW OF SYSTEMS: Positive for hypertension and a history of chest pain and angina. He has shortness of breath, dyspnea on exertion. He has chronic abdominal pain with loss of appetite. He is awakened at night with nocturia. He has had some fever, night sweats. He complains occasionally of headaches, lightheadedness and dizziness. He has a history of depression and occasionally has some memory loss. PAST MEDICAL HISTORY: Significant for 2 previous back surgeries, COPD, hypertension. He has a peripheral stent. PHYSICAL EXAMINATION: Blood pressure 132/73, heart rate 57, BMI is 22.0. He is able to move from sitting to standing position. His gait is stable. He has pain across the low back and tenderness. He has pain with straight leg raising bilaterally consistent with radiculopathy. There is some numbness and tingling in the posterior calf and lateral calf on the right consistent with an L5 radiculopathy. IMPRESSION: 1. Chronic intractable low back pain with radiculopathy. 2. Anorexia with weight loss. 3. Chronic obstructive pulmonary disease. [address] [address] PAIN MANAGEMENT CONSULTATION Name: LYLY BHARDWAJ Room #: REG [facility] Mami.#: [id number] Admission: 02/28/19 ������������������ Attend Phys: Lenin Cedeno MD Discharge: ������������������ Date of : 60 Report #: [id number] 4. Hypertension. 5. Coronary artery disease. RECOMMENDATIONS: 1. I will repeat his epidural injection. 2. I am going to transition him off of methadone on to Suboxone 05/27 b.i.d. He will begin the Suboxone in 36 hours after taking a day off of methadone. This tapering of the methadone in blood level after he discontinues it should put him in mild withdrawal and he should be able to initiate his Suboxone safely at that time. He will call the clinic if the transition is not adequate. He will continue on his Lyrica 50 mg b.i.d. PROCEDURE: Epidural steroid injection under fluoroscopic guidance. He was taken to fluoroscopic suite, placed prone, skin prepped with ChloraPrep. Skin anesthetized over the L4-L5 interspace. A 20-gauge Tuohy epidural needle advanced in the epidural space in the first attempt using loss of resistance technique. There was no blood or CSF aspirated. A 1 mL of Omnipaque was injected. Good spread of dye observed in the epidural space followed by 3 mL of 0.5% lidocaine mixed with 80 mg triamcinolone. He tolerated the procedure well and was observed for 45 minutes and discharged. Followup visit planned in the pain clinic in 3 months. ��������������������������������������������� ���������������������������������������� By: ��������������������������������������������� [id number] 0020 Lenin Cedeno MD /nt
[2019-02-28 10:51] VITALS: BP 132/73
--- NOTE | 2019-02-28 10:58 | NUR ---
Pain Clinic Assessment: 1. History of Osteoarthritis: back neck hips History of Rheumatoid Arthritis: Not Applicable 2. Height: 5 ft. 8 in. 172.7 cm. Weight: 144.8 lb. oz. 65.681 kg. Patient's BMI: 22.0 3. Vital Signs: BP: 132/73 Pulse: 57 Resp: 14 Temp: 02 Sat: 97 ECG Mon: 4. Pain Intensity: 8 5. Fall Risk: Dizziness: Y Needs help standing or walking: Y Fallen in the last 3 months: Y Fall risk comments: 6. Patient on Blood Thinner: None 7. History of Hypertension: Y 8. Opioid Therapy greater than 6 weeks: Y Opiate Contract Signed: 04/18/16 9. Risk Assessment Tool Provided: 7-mod risk 10. Functional Assessment Tool: 11. Recreational Drug Use: Current within past 3 mos Drug Type: MARAJAUNA Tobacco Use: Current Every Day Smoker Tobacco Type: Cigarettes Amount or Packs/day: 1 PK How Many Years: Alcohol Use: No Frequency: Quant:
== END | disposition home or self-care (01) ==
LOC: PAIN 06:54
DX: M54.16 Radiculopathy, lumbar region (principal); G89.29 Other chronic pain; I10 Essential (primary) hypertension; J44.9 Chronic obstructive pulmonary disease, unspecified; I25.10 Atherosclerotic heart disease of native coronary artery without angina pectoris; Z98.890 Other specified postprocedural states; Z79.899 Other long term (current) drug therapy; Z88.0 Allergy status to penicillin; Z88.8 Allergy status to other drugs, medicaments and biological substances; Z79.82 Long term (current) use of aspirin; Z86.59 Personal history of other mental and behavioral disorders

== ENCOUNTER → 2019-03-28 | Outpatient (CLI) | payer OTHER ==
[~2019-03-28] VITALS: Ht 175.3 cm; Wt 61.1 kg
--- NOTE | ~2019-03-28 | HPC ---
[facility] [address] [place] [address] PAIN MANAGEMENT CONSULTATION Name: LYLY BHARDWAJ Room #: REG [facility] MelanieElianeJoyce.#: [id number] Admission: 03/28/19 ������������������ Attend Phys: Lenin Cedeno MD Discharge: ������������������ Date of : 60 Report #: [id number] THIS REPORT FOR: //name// CC: Arvind Cedeno DATE OF SERVICE: 03/28/2019 CHIEF COMPLAINT: Followup visit for chronic intractable pain, low back pain with radiculopathy and management of high risk medication. The patient was in the clinic today for a complex medication followup visit. We have been working to try and find the best medication for his chronic condition. He was taken off of methadone because of anorexia and started on buprenorphine 05/27 b.i.d. He has had a rough month, although he has remained on it as requested as a trial. He has noticed several things and his is with him today to also provide some background. First of all, he has noticed that his pain intensity has increased. The pain is more constant, gnawing and aching across his low back radiating through the left leg. He also complains of pain in his neck that increased in intensity with the transition. He has had less energy. He feels more tired through the day and I think that is part due to the fact that he is dealing with significantly more pain. He scores his pain as an 8-9/10. In addition, his has noticed that his activities have decreased. He used to be more active around the house. He tends to be sitting around more and is hard to live with because he is complaining and is irritable. Methadone was much more helpful in all regards mentioned above. The pain was under better control. He was more active and his said his mood was significantly improved. He denied side effects with either medication. There has been no change in his weight over the course of the last week. We did review back, although he lost some significant amount of weight in the early part of 2018. He has actually gained some weight over the course of the last several months. He has upcoming tests tomorrow, EGD and lower GI. There is still some concern about his GI tract and is concerned for cancer. PHYSICAL EXAMINATION: GENERAL: He is pleasant, alert, oriented. No signs of anxiety, depression or overmedication. VITAL SIGNS: Blood pressure 143/76, heart rate 70. His BMI is 19.9. EXTREMITIES: He moves from an independent position to standing, walks with a cane. Pain across the low back is present. He has a spinal cord stimulator in place in his left chest for his neck. [address] [address] PAIN MANAGEMENT CONSULTATION Name: LYLY BHARDWAJ Room #: REG [facility] Melanie..#: [id number] Admission: 03/28/19 ������������������ Attend Phys: Lenin Cedeno MD Discharge: ������������������ Date of : 60 Report #: [id number] CHEST: Clear. CARDIAC: Rhythm is regular. IMPRESSION: 1. Chronic intractable low back pain with radiculopathy. 2. Chronic obstructive pulmonary disease. He continues to smoke and was counseled. 3. Chronic cervicalgia with radiculopathy with spinal cord stimulator. 4. Anorexia. 5. Hypertension. 6. Coronary artery disease. PLAN: Medications were renewed for 3 months under terms of our written agreement. He will carefully safeguard his medications. Followup visits from other physicians will be shared with our clinic. ��������������������������������������������� ���������������������������������������� By: ��������������������������������������������� 1024 [id number] Lenin Cedeno MD /nt
[2019-03-28 09:17] VITALS: BP 143/76
--- NOTE | 2019-03-28 09:23 | NUR ---
Pain Clinic Assessment: 1. History of Osteoarthritis: back neck hips History of Rheumatoid Arthritis: Not Applicable 2. Height: 5 ft. 9 in. 175.3 cm. Weight: 134.8 lb. oz. 61.145 kg. Patient's BMI: 19.9 3. Vital Signs: BP: 143/76 Pulse: 70 Resp: 14 Temp: 02 Sat: 96 ECG Mon: 4. Pain Intensity: 8-9 5. Fall Risk: Dizziness: Y Needs help standing or walking: Y Fallen in the last 3 months: Y Fall risk comments: 6. Patient on Blood Thinner: None 7. History of Hypertension: Y 8. Opioid Therapy greater than 6 weeks: Y Opiate Contract Signed: 04/18/16 9. Risk Assessment Tool Provided: 7-mod risk 10. Functional Assessment Tool: 11. Recreational Drug Use: Current within past 3 mos Drug Type: MARJAUNA Tobacco Use: Current Every Day Smoker Tobacco Type: Cigarettes Amount or Packs/day: 1 PACK How Many Years: Alcohol Use: No Frequency: Quant:
== END ==
LOC: PAIN 06:38
DX: M54.16 Radiculopathy, lumbar region (principal); M54.12 Radiculopathy, cervical region; G89.4 Chronic pain syndrome; J44.9 Chronic obstructive pulmonary disease, unspecified; I10 Essential (primary) hypertension; I25.10 Atherosclerotic heart disease of native coronary artery without angina pectoris; F17.200 Nicotine dependence, unspecified, uncomplicated; Z79.891 Long term (current) use of opiate analgesic; Z79.899 Other long term (current) drug therapy

== ENCOUNTER → 2019-06-23 | Outpatient (CLI) | payer OTHER ==
[~2019-06-23] VITALS: Ht 175.3 cm; Wt 63.8 kg
[~2019-06-23] MED LIST changes: +LYRICA 75 MG CA75 MG PO
[2019-06-23 08:54] VITALS: BP 97/67
--- NOTE | 2019-06-23 09:11 | NUR ---
Pain Clinic Assessment: 1. History of Osteoarthritis: back neck hips History of Rheumatoid Arthritis: Not Applicable 2. Height: 5 ft. 9 in. 175.3 cm. Weight: 140.6 lb. oz. 63.776 kg. Patient's BMI: 20.8 3. Vital Signs: BP: 97/67 Pulse: 71 Resp: 16 Temp: 02 Sat: 96 ECG Mon: 4. Pain Intensity: 7 5. Fall Risk: Dizziness: Y Needs help standing or walking: Y Fallen in the last 3 months: Y Fall risk comments: 6. Patient on Blood Thinner: None 7. History of Hypertension: Y 8. Opioid Therapy greater than 6 weeks: Y Opiate Contract Signed: 04/18/16 9. Risk Assessment Tool Provided: 7-mod risk 10. Functional Assessment Tool: 11. Recreational Drug Use: Current within past 3 mos Drug Type: Tobacco Use: Former Smoker Tobacco Type: Cigarettes Amount or Packs/day: How Many Years: Alcohol Use: No Frequency: Quant:
--- NOTE | 2019-07-14 08:38 | HPC ---
[facility] [place] [address] [address] PAIN MANAGEMENT CONSULTATION Name: LYLY BHARDWAJ Room #: REG [facility] Mami.#: [id number] Admission: 06/23/19 Attend Phys: Lenin Cedeno MD Discharge: Date of : 60 Report #: [id number] THIS REPORT FOR: //name// CC: Arvind Cedeno DATE OF SERVICE: 06/23/2019 Followup visit for chronic intractable pain, management of high risk medications under terms of written opioid agreement. The patient returns to pain clinic today with his . He is doing well on his methadone 10 mg 3 times a day. He is grateful for the excellent pain relief that it provides, feels that he is able to function much better throughout the day and is able to do many chores around the household. He is a fall risk and carefully uses a cane. He denies any side effects and carefully safeguards his medication. He recently has undergone POEM procedure at [facility] and is recovering nicely. PQRS REVIEW: 1. Positive for osteoarthritis involving neck and hips, spondylosis of the lumbar spine. 2. His BMI is 20.8, slightly on rebound. He looks better today with better color. 3. Vital signs: Blood pressure 97/67, heart rate 71, O2 sat 96. 4. Pain intensity is 7/10. 5. He is a fall risk, using a cane. He has fallen once a week due to weakness. We talked about caution, particularly on uneven ground. 6. He is on no blood thinners. 7. History of hypertension, under treatment by physicians at . 8. He is on an opioid agreement signed in 2016. 9. He is at moderate risk for addiction and we will watch him carefully. He has been a heavy alcohol user in the past, but has reduced his use of alcohol completely. 10. Functional assessment tool is 52/70. 11. He has quit smoking!! He is now over 2 months without a cigarette. We talked about how important this is in his overall health as well as in control of his pain. We may be able to taper his methadone in the future. I have reviewed the prescription drug monitoring program and there are no unexpected entries for opioids. I am his only provider. We have tried him on buprenorphine within the last 3 months and it was unsuccessful. Methadone 10 mg, which worked very effectively. We will continue him on that medication. I talked frequently and reinforced today the importance of safeguarding his [facility] [address] [place] [address] PAIN MANAGEMENT CONSULTATION Name: LYLY BHARDWAJ Room #: REG Z[facility] BolañosEliane#: [id number] Admission: 06/23/19 Attend Phys: Lenin Cedeno MD Discharge: Date of : 60 Report #: [id number] medication. A 25-minute followup visit. <ELECTRONICALLY SIGNED> By: Lenin Cedeno MD 07/14/19 0838 [id number] Lenin Cedeno MD /oc
== END ==
LOC: PAIN 08:12
DX: G89.4 Chronic pain syndrome (principal); Z79.891 Long term (current) use of opiate analgesic

== ENCOUNTER → 2019-08-25 | Outpatient (CLI) | payer OTHER ==
[~2019-08-25] VITALS: Ht 175.3 cm; Wt 65.9 kg
--- NOTE | ~2019-08-25 | HPC ---
[facility] [place] [address] PAIN MANAGEMENT CONSULTATION Name: LYLY BHARDWAJ Room #: REG [facility] Mami.#: [id number] Admission: 08/25/19 Attend Phys: Lenin Cedeno MD Discharge: Date of : 60 Report #: [id number] THIS REPORT FOR: //name// CC: Arvind Bowens DATE OF SERVICE: 08/25/2019 REASON FOR VISIT: Followup visit for chronic intractable low back pain with radiculopathy, chronic cervicalgia with radiculopathy. HISTORY OF PRESENT ILLNESS: The patient has been under a longstanding opioid agreement with our clinic. After several trials, we found methadone to be effective for him. He had tried multiple other pain management techniques including injections, radiofrequency ablations, surgeries and spinal cord stimulation. The methadone has worked nicely to provide him with some measure of relief. He is grateful for the pain relief it provides as well as the lack of side effects. He is able to be more active and functional. We spent a lot of time in our clinic discussing wellness behaviors. When he first came to us, he drank heavily. He has now been several years off of alcohol. I have also consistently recommended that he work on his tobacco use and he has now been off of cigarettes for 4 months. He has not had a cigarette since March. He scores his pain as a 7/10 with his medicine, but with this, he is functional. We are now less than 60 days away from marijuana being available in the [facility] as a medicinal substance not as an illicit drug. We had a lengthy discussion today about marijuana as a pain medicine. He was open and pily with me. I cannot recommend it or prescribe it at this time. He has reported to me that it does have pain relieving benefits for him and if he could use it, he would be able to reduce his reliance on opioids. There is much debate discussion and within the community of physicians on whether or not opioids play any role in the patients who are using marijuana as a medicinal substance. We will look for guidance in one of the many states which have already been providing medical marijuana for the treatment of chronic pain. PQRS REVIEW: 1. Positive for diffuse osteoarthritis with spondylosis of the cervical spine, hip and neck. 2. BMI is 21.4. 3. Vital signs: Blood pressure 142/76, heart rate 70, respirations 16, O2 sat [facility] [address] [place] [address] PAIN MANAGEMENT CONSULTATION Name: LYLY BHARDWAJ Room #: REG [facility].#: [id number] Admission: 08/25/19 Attend Phys: Lenin Cedeno MD Discharge: Date of : 60 Report #: [id number] 93. 4. Pain intensity /10. 5. He has fallen once in the last 3 months, but it was a trip at night. He landed on his right forearm. There were no other injuries. 6. He is on no blood thinning medication. 7. All medications were reviewed and reconciled. 8. He is being treated for hypertension. He takes metoprolol XL 25 mg b.i.d. 9. He has completed an opioid risk tool. He is at some risk 05/10 and is considered moderate risk for addiction. We will monitor him carefully with prescription drug monitoring program and drug screens. 10. His functional assessment score is 52, which suggest high impact of his pain. 11. He denies use of tobacco and alcohol as noted above. PHYSICAL EXAMINATION: GENERAL: As noted above. He moves independently from sitting to standing position. Gait is mildly antalgic. He uses a cane. HEENT: His pupils are equal, round, reactive to light. His EOMs are intact. His speech is fluent. Mucous membranes are moist. He has restrictions in range of motion of his cervical spine. CHEST: Clear. CARDIAC: Rhythm is regular. BACK: Tender across the lumbosacral segment. There is pain with forward flexion and extension. Positive straight leg raising is noted in the right leg. IMPRESSION: 1. Chronic intractable low back pain with radiculopathy. 2. Chronic cervicalgia also with radiculopathy. He has a history of spinal cord stimulator placement outside of our clinic. 3. Chronic obstructive pulmonary disease, now off of tobacco. 4. Coronary artery disease. 5. Hypertension. RECOMMENDATIONS: I will renew his methadone under terms of our agreement. He will carefully safeguard medication. He is on time for his medication and all prescription refills appear to be directly related to the time, which they were prescribed. His is with me and reports that she is grateful for the pain relief that it provides him and has improved day-to-day functioning. Followup visit is scheduled in the pain clinic in September or October. We will discuss further reductions in his opioids and marijuana as it becomes a legal medicinal substance in the state of [place]. By: [id number] Lenin Cedeno MD /oc
[2019-08-25 09:08] VITALS: BP 142/76
--- NOTE | 2019-08-25 09:27 | NUR ---
Pain Clinic Assessment: 1. History of Osteoarthritis: back neck hips History of Rheumatoid Arthritis: Not Applicable 2. Height: 5 ft. 9 in. 175.3 cm. Weight: 145.2 lb. oz. 65.862 kg. Patient's BMI: 21.4 3. Vital Signs: BP: 142/76 Pulse: 70 Resp: 16 Temp: 02 Sat: 93 ECG Mon: 4. Pain Intensity: 7 5. Fall Risk: Dizziness: Y Needs help standing or walking: Y Fallen in the last 3 months: N Fall risk comments: 6. Patient on Blood Thinner: None 7. History of Hypertension: Y 8. Opioid Therapy greater than 6 weeks: Y Opiate Contract Signed: 04/18/16 9. Risk Assessment Tool Provided: 7-mod risk 10. Functional Assessment Tool: 11. Recreational Drug Use: Current within past 3 mos Drug Type: MARJUANA Tobacco Use: Former Smoker Tobacco Type: Amount or Packs/day: 1-2 PPD How Many Years: 40 Alcohol Use: Past use Frequency: Daily Quant: 30 PACK/DAY
== END ==
LOC: PAIN 08-24 10:25
DX: M54.16 Radiculopathy, lumbar region (principal); M54.12 Radiculopathy, cervical region; G89.4 Chronic pain syndrome; J44.9 Chronic obstructive pulmonary disease, unspecified; I25.10 Atherosclerotic heart disease of native coronary artery without angina pectoris; I10 Essential (primary) hypertension; Z87.891 Personal history of nicotine dependence; Z79.891 Long term (current) use of opiate analgesic; Z79.899 Other long term (current) drug therapy

== ENCOUNTER → 2019-11-17 | Outpatient (CLI) | payer OTHER ==
[~2019-11-17] VITALS: Ht 175.3 cm; Wt 67.5 kg
[~2019-11-17] MED LIST changes: +REMERON SOLTAB45 MG; -REMERON15 MG PO
[2019-11-17 10:17] VITALS: BP 123/72
--- NOTE | 2019-11-17 10:33 | NUR ---
Pain Clinic Assessment: 1. History of Osteoarthritis: back neck hips History of Rheumatoid Arthritis: Not Applicable 2. Height: 5 ft. 9 in. 175.3 cm. Weight: 148.8 lb. oz. 67.495 kg. Patient's BMI: 22.0 3. Vital Signs: BP: 123/72 Pulse: 70 Resp: 14 Temp: 02 Sat: 95 ECG Mon: 4. Pain Intensity: 7 5. Fall Risk: Dizziness: Y Needs help standing or walking: Y Fallen in the last 3 months: N Fall risk comments: 6. Patient on Blood Thinner: None 7. History of Hypertension: Y 8. Opioid Therapy greater than 6 weeks: Y Opiate Contract Signed: 04/18/16 9. Risk Assessment Tool Provided: 7-mod risk 10. Functional Assessment Tool: 11. Recreational Drug Use: Current within past 3 mos Drug Type: Tobacco Use: Former Smoker Tobacco Type: Amount or Packs/day: How Many Years: Alcohol Use: Past use Frequency: Quant:
--- NOTE | 2019-11-17 15:35 | HPC ---
[facility] [address] [place] [address] PAIN MANAGEMENT CONSULTATION Name: LYLY BHARDWAJ [facility] [id number] Admission: 11/17/19 Attend Phys: Tila Faye Discharge: Date of : 60 Report #: [id number] THIS REPORT FOR: //name// CC: Tila Cedeno MD DATE OF SERVICE: 11/17/2019 CHIEF COMPLAINT: Chronic intractable low back pain with radiculopathy, chronic cervicalgia and radiculopathy. HISTORY OF PRESENT ILLNESS: This is a 59-year-old gentleman who returns to the pain clinic today for refill of his medications. He finds his methadone very beneficial in controlling most of his pain, rating his pain score today at 7/10. He does report that he is having some increased neck pain and was wondering if he may have an epidural today. He reports his neck pain radiates down his right arm. Pain stops at his elbow, but he continues to have numbness and tingling in his hand. He also has ongoing low back pain that radiates into his hips and he reports pain in his greater left toe due to an injury that he sustained several weeks ago. Today, he would like a refill of his medications and an epidural, if he is able to have that performed. ALLERGIES: PENICILLIN AND BACLOFEN. CURRENT LIST OF MEDICATIONS: Lyrica 75 mg b.i.d., methadone 10 mg t.i.d., folic acid, Toprol, atorvastatin, Lasix, vitamin B, Pancreaze, Janis aspirin, Synthroid, Remeron, Ambien, Zoloft, Nexium, Flomax, and Topamax. PQRS: 1. He has diffuse osteoarthritis with spondylosis in his cervical spine, hips and neck. Denies any rheumatoid arthritis. 2. Height is 5 feet 9 inches, weight is 148. This is slight increase, his BMI is 22. 3. Vital signs 123/72, pulse is 70, respirations 14, and oxygen sat is 95. 4. Pain score is 7/10. 5. Complains of some dizziness. Does use a cane for ambulation, has not fallen in the last 3 months. 6. The patient is not on any blood thinners, does take medicine for hypertension. His opioid therapy is greater than 6 weeks; therefore, an opioid signed contract is on the chart. Risk assessment is moderate. Functional assessment is 51/70. Recreational drug use of marijuana use. He is a former smoker and [place] [address] PAIN MANAGEMENT CONSULTATION Name: LYLY BHARDWAJ Room #: REG [facility] Beronica#: [id number] Admission: 11/17/19 Attend Phys: Tila Faye Discharge: Date of : 60 Report #: [id number] According to the prescription monitoring system, the patient is filling appropriately for his medications in a timely fashion. We did discuss that it is still not legal for marijuana use in our state. He does report that he feels that is beneficial to him, though he is not currently used it in the past month. PHYSICAL EXAMINATION: GENERAL: This is alert and orientated, very thin 59-year-old gentleman who appears his stated age, placing his current pain score at 7/10 today. HEENT: Normocephalic, atraumatic. Extraocular eye muscles are intact. Mucous membranes are moist. NECK: He has restrictions in his range of motion in his cervical spine. He does have a suboccipital stimulator on the left, complaining of pain in his neck that radiates down his right arm following the C6-C7, C7-C8 dermatomal distribution. MUSCULOSKELETAL: He has tenderness across his lumbosacral segment. Pain is worse with forward flexion. Straight leg raising is positive on the right leg. He also has pain in his left greater toe due to recent injury. IMPRESSION: 1. Chronic intractable pain with cervicalgia and radiculopathy, status post 2-level fusion, anterior cervical diskectomy and fusion. 2. Cervical radiculopathy. 3. Chronic intractable low back pain with radiculopathy. 4. Chronic obstructive pulmonary disease. 5. Coronary artery disease. 6. Hypertension. 7. Management of high risk medications under terms of written opioid agreement on methadone therapy. 8. We reviewed the fact that opiate medications are being used to provide analgesia adequate to support activities of daily living, not attempting to achieve a specific pain score on the 0-10 Visual Analog Scale. The current opiate medications are providing sufficient analgesia to allow the patient to participate in activities of daily living. The patient is not exhibiting any aberrant behavior suggestive of drug diversion. The patient is not having any adverse reactions to medications. The patient is not suffering from daytime somnolence or mental acuity changes. The patient is managing opiate-induced constipation with appropriate ibzx-mgg-irmylil agents and dietary considerations. The patient was counseled on concern for caution with operating a motor vehicle while using opiate medications. A physical exam was performed and the patient's functional status was evaluated. All patients with back pain were advised against the bed rest greater than 4 days and were advised to return to normal activities. Pain score assessment was noted and the treatment plan was reviewed with the patient. All current medications, both prescribed and OTC were reviewed and reconciled on the electronic medical record. Tobacco screening was accomplished and smoking [facility] [address] [place] [address] PAIN MANAGEMENT CONSULTATION Name: LYLY BHARDWAJ Room #: [facility] [id number] Admission: 11/17/19 Attend Phys: Tila Faye Discharge: Date of : 60 Report #: [id number] cessation was advised when indicated. BMI was noted and diet/exercise modification was recommended for all patients following outside normal parameters. PLAN: 1. We discussed treatment options with the patient today. We did talk about the possibility of a cervical epidural steroid injection since he is having ongoing issues that do flare. Today, he is reporting pain that is radiating down his arm into his fingers. We will schedule him for a cervical epidural steroid injection by Dr. Lenin Cedeno. His last epidural for his cervical region was in 06/2018. 2. We will refill his methadone 10 mg 3 times a day, quantity 90. These will be sent electronically by Dr. Lenin Cedeno to his pharmacy for 3 months. 3. We again discussed medical marijuana. The patient continues to be interested in this. He does find that marijuana is beneficial in helping relieve some of his pain, though he understands that it is not legal at this time. He is currently still not smoking. He is not drinking, which he has stopped in the past year, but does consider marijuana a possible treatment option for him in the future. 4. The patient denies any problems with constipation or daytime sleepiness. The patient is seen in collaboration with Dr. Lenin Wilian today. <ELECTRONICALLY SIGNED> By: Tila Faye 11/17/19 1535 [id number] Tila Faye /nt
== END ==
LOC: PAIN 06:42
DX: M54.12 Radiculopathy, cervical region (principal); M54.16 Radiculopathy, lumbar region; J44.9 Chronic obstructive pulmonary disease, unspecified; I10 Essential (primary) hypertension; Z79.891 Long term (current) use of opiate analgesic

== ENCOUNTER → 2020-02-13 | Outpatient (CLI) | payer OTHER ==
[~2020-02-13] VITALS: Ht 175.3 cm; Wt 67.5 kg
[~2020-02-13] MED LIST changes: +TRAZODONE 150150 M1 PO
[2020-02-13 10:34] VITALS: BP 111/64
--- NOTE | 2020-02-13 10:49 | NUR ---
Pain Clinic Assessment: 1. History of Osteoarthritis: back neck hips History of Rheumatoid Arthritis: Not Applicable 2. Height: 5 ft. 9 in. 175.3 cm. Weight: 148.8 lb. oz. 67.495 kg. Patient's BMI: 22.0 3. Vital Signs: BP: 111/64 Pulse: 70 Resp: 14 Temp: 02 Sat: 97 ECG Mon: 4. Pain Intensity: 7 5. Fall Risk: Dizziness: N Needs help standing or walking: Y Fallen in the last 3 months: Y Fall risk comments: 6. Patient on Blood Thinner: None 7. History of Hypertension: Y 8. Opioid Therapy greater than 6 weeks: Y Opiate Contract Signed: 04/18/16 9. Risk Assessment Tool Provided: 7-mod risk 10. Functional Assessment Tool: 11. Recreational Drug Use: Current within past 3 mos Drug Type: Tobacco Use: Former Smoker Tobacco Type: Cigarettes Amount or Packs/day: How Many Years: Alcohol Use: Past use Frequency: Quant:
--- NOTE | 2020-02-14 11:00 | HPC ---
[facility] [place] [address] PAIN MANAGEMENT CONSULTATION Name: LYLY BHARDWAJ Room #: REG [facility] Mami.#: [id number] Admission: 02/13/20 Attend Phys: Tila Faye Discharge: Date of : 60 Report #: [id number] THIS REPORT FOR: cc: Osmin Villareal MD, John M. MD Hocker,Tila PENALOZA ~ CC: Lenin Cedeno MD DATE OF SERVICE: 02/13/2020 CHIEF COMPLAINT: Chronic intractable low back pain with radiculopathy, chronic cervicalgia and radiculopathy. HISTORY OF PRESENT ILLNESS: This is a very pleasant 59-year-old gentleman who returns to the pain clinic today for refill of his medications that he uses to help treat his ongoing low back pain and neck pain. He reports that his right leg is problematic, especially when walking. Today, it is a constant, dull ache, reporting a pain score of 7/10. Pain increases with weather changes and activity. He does use a cane at all times when he is out in public. He feels that that is helpful as well as his medication. The patient is reporting that his constipation issues have resolved. He is no longer requiring Senokot on a daily basis. He is thankful that he is not having issues any longer as a result of his opioid medicines. Today, he is requesting refills of his methadone. ALLERGIES: PENICILLIN and BACLOFEN. CURRENT LIST OF MEDICATIONS: Trazodone 150 mg at bedtime, methadone 10 mg t.i.d., Lyrica 75 mg b.i.d., folic acid, metoprolol, atorvastatin, Lasix, thiamin, Pancrease, aspirin, levothyroxine, Remeron, Zoloft, Nexium, Flomax and Topamax. PQRS: 1. He has osteoarthritic changes in his back, neck and hips. He denies any rheumatoid arthritis. 2. Height is 5 feet 9 inches, weight is 148, BMI is 22. 3. Vital signs 111/64, pulse is 70, respirations 14, oxygen sat is 97. 4. Pain score is 7/10. 5. Denies dizziness. He does use a cane for ambulation and has fallen in the last 3 months, but not injured himself. 6. The patient is not on any blood thinners, but does take medicine for hypertension. His opioid therapy is greater than 6 weeks; therefore, an opioid signed contract is on the chart. Risk assessment tool is moderate. Functional assessment is 51/70. 7. Recreational drug use in the past. He is a former [place] [employer] [address] PAIN MANAGEMENT CONSULTATION Name: LYLY BHARDWAJ [id number] Admission: 02/13/20 Attend Phys: Tila Faye Discharge: Date of : 60 Report #: [id number] does not drink alcohol. According to the prescription monitoring system, the patient is filling appropriately in a timely fashion. He is due to fill his medications today for his opioids using only one pharmacy. According to the CDC guidelines, his morphine mEq is 90 MME. PHYSICAL EXAMINATION: GENERAL: This is alert and orientated 59-year-old gentleman who appears slightly older than his stated age, rating his pain score at 7/10 today. HEENT: Normocephalic, atraumatic. Extraocular eye muscles are intact. Mucous membranes are moist. NECK: He has sub-ocular stimulator on the left of his neck. He has pain in his cervical spine that radiates down his right arm following the C5-C6, C7-C8 dermatomal distribution. He has limited range of motion in his cervical spine due to previous surgeries. MUSCULOSKELETAL: Straight leg raising is positive on his right leg. He has tenderness in his lumbosacral region of his spine. He walks with an antalgic gait. His lower extremity strength judged to be 5/5 in all major muscle groups. He does use a cane with ambulation. IMPRESSION: 1. Chronic intractable pain with cervicalgia and radiculopathy, status post 2-level fusion, anterior cervical diskectomy. 2. Cervical radiculopathy. 3. Chronic intractable low back pain with radiculopathy. 4. Chronic obstructive pulmonary disease. 5. Management of high risk medications under terms of written opioid agreement on methadone. We reviewed the fact that opiate medications are being used to provide analgesia adequate to support activities of daily living, not attempting to achieve a specific pain score on the 0-10 Visual Analog Scale. The current opiate medications are providing sufficient analgesia to allow the patient to participate in activities of daily living. The patient is not exhibiting any aberrant behavior suggestive of drug diversion. The patient is not having any adverse reactions to medications. The patient is not suffering from daytime somnolence or mental acuity changes. The patient is managing opiate-induced constipation with appropriate fgkr-cqw-jbgkgty agents and dietary considerations. The patient was counseled on concern for caution with operating a motor vehicle while using opiate medications. PLAN: 1. We discussed treatment options with the patient today. The patient states the methadone is very beneficial in controlling his pain. We will have Dr. Lenin Cedeno send medicines electronically for his 10 mg, #90, for today, [address] [address] PAIN MANAGEMENT CONSULTATION Name: LYLY BHARDWAJ Room #: REG [facility].#: [id number] Admission: 02/13/20 Attend Phys: Tila Faye Discharge: Date of : 60 Report #: [id number] 4-week and 8-week release. The patient is a longstanding legacy patient of Dr. Lenin Cedeno, so he allows him 3 months' supply due to the distance that he drives despite him being at 90 morphine mEq. 2. The patient reports he is not using medical marijuana at this time. He does know that it is beneficial in decreasing his pain, but at this time he is not using it, though he may discuss getting a medical marijuana card in the future. 3. The patient is seen today in collaboration with Dr. Lenin Cedeno who sent his scripts electronically. <ELECTRONICALLY SIGNED> By: Tila Faye 02/14/20 1100 1130 1216 Tila Faye /oc
== END ==
LOC: PAIN 11-24 08:33
DX: M54.12 Radiculopathy, cervical region (principal); M54.10 Radiculopathy, site unspecified; G89.29 Other chronic pain; J44.9 Chronic obstructive pulmonary disease, unspecified; F11.20 Opioid dependence, uncomplicated; M54.5 Low back pain; Z87.891 Personal history of nicotine dependence; Z88.0 Allergy status to penicillin; Z88.8 Allergy status to other drugs, medicaments and biological substances; Z79.899 Other long term (current) drug therapy

== ENCOUNTER → 2020-05-07 | Outpatient (CLI) | payer OTHER ==
[~2020-05-07] VITALS: Ht 175.3 cm; Wt 63.9 kg
[2020-05-07 10:00] VITALS: BP 133/74
--- NOTE | 2020-05-07 10:08 | NUR ---
Pain Clinic Assessment: 1. History of Osteoarthritis: back neck hips History of Rheumatoid Arthritis: Not Applicable 2. Height: 5 ft. 9 in. 175.3 cm. Weight: 140.8 lb. oz. 63.866 kg. Patient's BMI: 20.8 3. Vital Signs: BP: 133/74 Pulse: 69 Resp: 20 Temp: 02 Sat: 94 ECG Mon: 4. Pain Intensity: 6-7 5. Fall Risk: Dizziness: Y Needs help standing or walking: N Fallen in the last 3 months: Y Fall risk comments: walks with cane, 6. Patient on Blood Thinner: None 7. History of Hypertension: Y 8. Opioid Therapy greater than 6 weeks: Y Opiate Contract Signed: 04/18/16 9. Risk Assessment Tool Provided: 7-mod risk 10. Functional Assessment Tool: 11. Recreational Drug Use: Current within past 3 mos Drug Type: marajuana Tobacco Use: Current Every Day Smoker Tobacco Type: Cigarettes Amount or Packs/day: 1 ppd How Many Years: 40 Alcohol Use: Past use Frequency: Daily Quant: case/day for 40 years per pt
--- NOTE | 2020-05-08 07:49 | HPC ---
[facility] [address] [place] [address] PAIN MANAGEMENT CONSULTATION Name: LYLY BHARDWAJ Room #: REG Z[facility] NavarroElianeJoyce.#: [id number] Admission: 05/07/20 Attend Phys: Tila Faye Discharge: Date of : 60 Report #: [id number] THIS REPORT FOR: cc: Osmin Villareal MD, John M. MD Hocker,Tila PENALOZA ~ CC: Lenin Cedeno MD CHIEF COMPLAINT: Chronic intractable low back pain with radiculopathy, chronic cervicalgia and radiculopathy. HISTORY OF PRESENT ILLNESS: This is a 60-year-old gentleman who returns to the pain clinic today for refills of his medications. He is well known to the pain clinic, has been followed by Dr. Cedeno for several years. Today, he is reporting a pain score of 6-7, located in his neck, low back, bilateral legs. He states that it is a dull aching pain, worse with any activity, and walking. He does use a cane for ambulation. He feels that the medications are beneficial and would like refills today. The patient has been trying to obtain a renewal of his marijuana green card, though he states he is holding off until the dispensaries had been opened in [place]. He has had one for a year, waiting for the dispensaries to open, but due to the COVID virus they have not started selling it. Occasionally, he will acquire marijuana to use from an outside source, though he states that is not a regular basis. When he is able to use that his pain is decreased and he is under the understanding that when the dispensaries are open, we will decrease his methadone and he will use medical marijuana. ALLERGIES: PENICILLIN AND BACLOFEN. CURRENT LIST OF MEDICATIONS: Trazodone 50 mg at bedtime, methadone 10 mg 3 times a day, Lyrica, senna, folic acid, Toprol, atorvastatin, Lasix, vitamin B1, pancrease, aspirin, Synthroid, Ventolin, Remeron, Zoloft, Nexium, Flomax and Topamax. PATIENT'S PQRS: 1. He has osteoarthritis and spondylosis in his back and osteoarthritis in his hips. Denies any rheumatoid arthritis. 2. Height is 5 feet 9 inches, weight is 140, BMI is 20. Vital signs 133/74, pulse is 69, respirations 20, oxygen sat is 94%. 3. Pain score is 6-7. Fall risk, complains of slight dizziness. Does use a cane for ambulation, has fallen in the last 3 months and not injured himself, will require medical attention. The patient is not on any blood thinners, but does take medicine for hypertension. Opioid therapy is greater than 6 weeks; therefore, an opioid signed contract is on the chart. Risk assessment is moderate. Functional assessment is 51/70. Recreational drug use, currently marijuana and currently smoking cigarettes about a pack a day, does not drink [address] [address] PAIN MANAGEMENT CONSULTATION Name: LYLY BHARDWAJ Room #: REG Z[facility] Loco#: [id number] Admission: 05/07/20 Attend Phys: Tila Faye Discharge: Date of : 60 Report #: [id number] alcohol. According to the prescription monitoring system, the patient is filling appropriately for his medications in a timely fashion. PHYSICAL EXAMINATION: GENERAL: This is an alert and orientated, very slender 60-year-old gentleman who is reporting a pain score of 6-7/10 today. HEENT: Normocephalic, atraumatic. Extraocular eye muscles are intact. He is wearing a mask. NECK: He has pain in his cervical spine that radiates down his right arm following the C5-C6, C6-C7 dermatomal distribution with limited range of motion of his cervical spine due to surgeries. He does have a stimulator in his left neck. MUSCULOSKELETAL: He has an antalgic gait, uses a cane at all times. Lower extremity strength judged to be 5/5 with good sensation from the L1 to S2. Straight leg raising is positive on his right leg. He has tenderness in the lumbosacral region of his back that radiates into the right leg. IMPRESSION: 1. Chronic intractable pain with cervicalgia and radiculopathy, status post fusion and diskectomy. 2. Cervical radiculopathy. 3. Chronic low back pain with radiculopathy. 4. Chronic obstructive pulmonary disease. 5. Management of high risk medications under terms of written opioid agreement. 6. Tobacco habituation. We reviewed the fact that opiate medications are being used to provide analgesia adequate to support activities of daily living, not attempting to achieve a specific pain score on the 0-10 Visual Analog Scale. The current opiate medications are providing sufficient analgesia to allow the patient to participate in activities of daily living. The patient is not exhibiting any aberrant behavior suggestive of drug diversion. The patient is not having any adverse reactions to medications. The patient is not suffering from daytime somnolence or mental acuity changes. The patient is managing opiate-induced constipation with appropriate hapm-lag-lgrqfpo agents and dietary considerations. The patient was counseled on concern for caution with operating a motor vehicle while using opiate medications. PLAN: 1. We discussed treatment options with the patient today. The patient finds his methadone beneficial in controlling his pain, we will have Dr. Lenin Cedeno sent his methadone 10 mg 3 times a day, #90, for today, 4-week and 8-week release. 2. I did discuss with the patient when he is able to obtain a green card again [facility] [address] [place] [address] PAIN MANAGEMENT CONSULTATION Name: LYLY BHARDWAJ Room #: REG [facility]..#: [id number] Admission: 05/07/20 Attend Phys: Tila Faye Discharge: Date of : 60 Report #: [id number] and take his medical marijuana legally from the dispensaries in [place]. We will work on decreasing his opioid use from our clinic. The patient verbalizes understanding. His goal is to only use medical marijuana once becomes available. 3. The patient reports that he is having some increase in headaches. The psychiatric doctor that he sees at has been adjusting his meds. I encouraged him to call them to see if they can adjust them slightly again to decrease his ongoing head pain. 4. We discussed the patient has recently started smoking again up to 1 pack a day. The patient does state that he felt better when he was not smoking and he had stopped for about 5 months. He shows me he has a Nicoderm patch 21 mcg to put on. I encouraged the patient to start that as soon as possible and to decrease his smoking, reminding him that he did feel better when he was not smoking and that his pain medicines do work more effectively. 5. The patient will return in 3 months for an appointment. 6. The patient is seen in collaboration with Dr. Cedeno. <ELECTRONICALLY SIGNED> By: Tial Faye 05/08/20 0749 1101 1141 Tila Faye /nt
== END ==
LOC: PAIN 07:01
PROVIDERS: ATTEND Clinical Nurse Specialist Adult Health
DX: M54.12 Radiculopathy, cervical region (principal); G89.29 Other chronic pain; M54.2 Cervicalgia; M54.5 Low back pain; J44.9 Chronic obstructive pulmonary disease, unspecified; F17.200 Nicotine dependence, unspecified, uncomplicated; F11.90 Opioid use, unspecified, uncomplicated; Z88.0 Allergy status to penicillin; Z88.8 Allergy status to other drugs, medicaments and biological substances

== ENCOUNTER → 2020-07-26 | Outpatient (CLI) | payer OTHER ==
[~2020-07-26] VITALS: Ht 175.3 cm; Wt 63.6 kg
[2020-07-26 12:49] VITALS: BP 130/71
--- NOTE | 2020-07-26 13:11 | NUR ---
Pain Clinic Assessment: 1. History of Osteoarthritis: back neck hips History of Rheumatoid Arthritis: Not Applicable 2. Height: 5 ft. 9 in. 175.3 cm. Weight: 140.2 lb. oz. 63.594 kg. Patient's BMI: 20.7 3. Vital Signs: BP: 130/71 Pulse: 64 Resp: 14 Temp: 02 Sat: 97 ECG Mon: 4. Pain Intensity: 8 5. Fall Risk: Dizziness: N Needs help standing or walking: Y Fallen in the last 3 months: Y Fall risk comments: walks with cane, 6. Patient on Blood Thinner: None 7. History of Hypertension: Y 8. Opioid Therapy greater than 6 weeks: Y Opiate Contract Signed: 04/18/16 9. Risk Assessment Tool Provided: 7-mod risk 10. Functional Assessment Tool: 11. Recreational Drug Use: Current within past 3 mos Drug Type: marajuana Tobacco Use: Current Every Day Smoker Tobacco Type: Cigarettes Amount or Packs/day: 1 ppd How Many Years: 40 Alcohol Use: Past use Frequency: Quant:
--- NOTE | 2020-07-30 07:19 | HPC ---
[facility] [place] [address] PAIN MANAGEMENT CONSULTATION Name: LYLY BHARDWAJ Room #: REG [facility] Mami.#: [id number] Admission: 07/26/20 Attend Phys: Tila Faye Discharge: Date of : 60 Report #: [id number] THIS REPORT FOR: cc: Osmin Villareal MD, John M. MD Hocker,Tila PENALOZA ~ CC: Tila Cedeno MD DATE OF SERVICE: 07/26/2020 CHIEF COMPLAINT: Chronic intractable low back pain with radiculopathy, chronic cervicalgia and radiculopathy. HISTORY OF PRESENT ILLNESS: This is a 60-year-old gentleman who returns to the pain clinic today to discuss his opioid medications. He believes that the methadone is quite beneficial in controlling his pain despite his high pain score of 8/10 today. It is in his neck, his lumbar region and radiates into his bilateral hips and legs. This is a dull, constant ache, he reports with any activity, though he continues to be active. He recently fell while working out in his yard over a walnut and landed on a log. The last few days, he is reporting some low back pain in regards to that, but does stay active despite his pain. Again, he finds the medications beneficial. Denies any problems with constipation or daytime somnolence as a result of his medications. He is due to fill his medicines on the per his report. ALLERGIES: PENICILLIN AND BACLOFEN. CURRENT LIST OF MEDICATIONS: Methadone 10 mg t.i.d., trazodone, Lyrica, senna, folic acid, Toprol, atorvastatin, Lasix, vitamin B, pancrease, aspirin, nitro, levothyroxine, Remeron, Zoloft, Nexium, Flomax and Topamax. PQRS: 1. He has osteoarthritis and spondylosis in his lumbar spine and neck and osteoarthritis in his hips. He denies any rheumatoid arthritis. 2. Height is 5 feet 9 inches, weight is 140, BMI is 20. 3. Vital signs; blood pressure 130/71, pulse is 64, respirations 14, oxygen sat is 97. 4. Pain score is 8/10. 5. Fall risk. Denies dizziness. Does use a cane for ambulation and has fallen this weekend, but did not seek medical attention. The patient is not on any blood thinners, but does take medicine for hypertension. 6. His opioid therapy is greater than 6 weeks; therefore, an opioid signed contract is on the chart. Risk assessment is moderate. Functional assessment is 51/70. [address] [address] PAIN MANAGEMENT CONSULTATION Name: LYLY BHARDWAJ Room #: REG [facility] Loco#: [id number] Admission: 07/26/20 Attend Phys: Tila Faye Discharge: Date of : 60 Report #: [id number] 7. Recreational drug use, current for marijuana. He currently smokes 1-pack of cigarettes a day and does not drink alcohol. According to the prescription monitoring system, he is due to fill his medications in 2 weeks. His morphine milliequivalent is 90 MME according to the CDC guidelines. There is a drug screen on his chart. PHYSICAL EXAMINATION: GENERAL: This is alert and orientated 60-year-old gentleman who appears his stated age, placing his current pain score at 8/10 today. HEENT: Normocephalic, atraumatic. Extraocular eye muscles are intact. He is wearing a mask. NECK: His cervical spine pain radiates into his right arm with limited range of motion of his cervical spine due to previous surgeries. MUSCULOSKELETAL: He has an antalgic gait, uses a cane. He has tenderness in his lumbosacral region on the right with large area of ecchymosis due to a recent fall. Straight leg raising is positive on the right leg. Lower extremity strength judged to be 5/5 with good sensation from L1-S2. IMPRESSION: 1. Chronic intractable pain with cervicalgia and radiculopathy, status post fusion and diskectomy. 2. Cervical radiculopathy. 3. Chronic low back pain with radiculopathy. 4. Chronic obstructive pulmonary disease. 5. Tobacco habituation. 6. Management of high risk medications under terms of written opioid agreement. We reviewed the fact that opiate medications are being used to provide analgesia adequate to support activities of daily living, not attempting to achieve a specific pain score on the 0-10 Visual Analog Scale. The current opiate medications are providing sufficient analgesia to allow the patient to participate in activities of daily living. The patient is not exhibiting any aberrant behavior suggestive of drug diversion. The patient is not having any adverse reactions to medications. The patient is not suffering from daytime somnolence or mental acuity changes. The patient is managing opiate-induced constipation with appropriate [id number] agents and dietary considerations. The patient was counseled on concern for caution with operating a motor vehicle while using opiate medications. A physical exam was performed and the patient's functional status was evaluated. All patients with back pain were advised against the bed rest greater than 4 days and were advised to return to normal activities. Pain score assessment was noted and the treatment plan was reviewed with the patient. All current medications, both prescribed and OTC were reviewed and reconciled on the electronic medical record. Tobacco screening was accomplished and smoking [facility] [address] [place] [address] PAIN MANAGEMENT CONSULTATION Name: LYLY BHARDWAJ Room #: REG [facility]..#: [id number] Admission: 07/26/20 Attend Phys: Tila TREMAINE Faye Discharge: Date of : 60 Report #: [id number] cessation was advised when indicated. BMI was noted and diet/exercise modification was recommended for all patients following outside normal parameters. I reviewed with the patient today their responsibilities to safeguard prescription medications, reviewed their responsibility to utilize medications only as prescribed by the physician. They are to seek and receive pain medications only from 1 physician group ( [facility]). They are to use 1 pharmacy and keep the clinic informed if they change pharmacies. Their responsibilities include making followup visits in a timely fashion and to avoid abrupt discontinuation of medication usage. Their responsibilities further include bringing their medications (bottles from the pharmacy with residual pills) to the visit for possible confirmation of pill counts and the patient understands it is their responsibility to submit to random drug screens to ensure both that the medications prescribed are present, and that no other controlled substances are present. All prescriptions provided today were generated electronically. PLAN: 1. We discussed treatment options with the patient today. We encouraged the patient to decrease his smoking and to stop. Last visit, he was wearing a Nicoderm patch. Since that time, he has started smoking 1-pack of cigarettes a day. Per his report, he felt better when he was not smoking. We did discuss the cost factor as well as pain implications of cigarette smoking and encouraged him to try to decrease and then quit his smoking. 2. We will have Dr. Lenin Cedeno sent his methadone to his pharmacy. The patient does not need to fill this until 08/09/2020. Scripts will be dated for that today as well as 09/05/2020 and 10/03/2020. 3. The patient is seen today in collaboration with Dr. Lenin Cedeno. <ELECTRONICALLY SIGNED> By: Tila Faye 07/30/20 0719 [id number] Tila Faye /nt
== END ==
LOC: PAIN 07:00
PROVIDERS: ATTEND Clinical Nurse Specialist Adult Health
DX: M54.16 Radiculopathy, lumbar region (principal); M54.12 Radiculopathy, cervical region; G89.4 Chronic pain syndrome; J44.9 Chronic obstructive pulmonary disease, unspecified; Z88.0 Allergy status to penicillin; Z88.8 Allergy status to other drugs, medicaments and biological substances; Z79.899 Other long term (current) drug therapy

== ENCOUNTER → 2020-11-08 | Outpatient (CLI) | payer OTHER ==
--- NOTE | 2020-11-09 07:33 | HPC ---
[facility] [address] [place] [address] PAIN MANAGEMENT CONSULTATION Name: LYLY BHARDWAJ Room #: REG [facility] Mami.#: [id number] Admission: 11/08/20 Attend Phys: Tila Faye Discharge: Date of : 60 Report #: [id number] THIS REPORT FOR: cc: Osmin Villareal MD, John M. MD Hocker,Tila PENALOZA ~ DATE OF SERVICE: 11/08/2020 This is a telemedicine appointment speaking with via the telephone with patient from 1345 to 1400 that he has consented for. CHIEF COMPLAINT: Chronic intractable low back pain with radiculopathy, chronic cervicalgia, and radiculopathy. HISTORY OF PRESENT ILLNESS: This is a 60-year-old gentleman who I am speaking with via the telephone today for a discussion on his opioid medications. The patient is sick at home, experiencing nausea and vomiting. He does not believe he has coronavirus. He believes that he has food poisoning from a fast food restaurant that he went to last night, per his report. His did not eat there. He is the only one sick in the house today. The patient states he has not been able to tolerate any fluids or food today and has not taken any of his opioid medications. The patient reports overall he has been experiencing an average pain score of 6/10, most significantly in his neck and back. It does radiate into his hips as well. These are his normal pain generators that he describes as a dull, constant ache that is worse with activity. He denies any significant constipation or daytime somnolence as a result of his medication. He does state that the weather changes do increase his pain. Overall, he believes he is doing quite well on his current methadone dose. ALLERGIES: PENICILLIN and BACLOFEN. CURRENT LIST OF MEDICATIONS: Methadone 10 mg t.i.d., trazodone, Lyrica, Senokot, folic acid, metoprolol, atorvastatin, furosemide, thiamin, lipase, amylase, aspirin, levothyroxine, Remeron, Zoloft, Nexium, Flomax and Topamax. PQRS: 1. He has history of osteoarthritic changes and spondylosis in his spine and neck and osteoarthritis in his hips. Denies any rheumatoid arthritis. 2. Height, weight, and vital signs were deferred due to a Telemed appointment. Pain score is 6/10. 3. Fall risk. He denies dizziness. Does use a cane for ambulation and reports he has not fallen in the last 3 months. The patient does not take any blood thinners, but does take medicine for hypertension. 4. Opioid therapy is greater than 6 weeks; therefore, an opioid signed contract [address] [address] PAIN MANAGEMENT CONSULTATION Name: LYLY BHARDWAJ Room #: REG [facility] Beronica#: [id number] Admission: 11/08/20 Attend Phys: Tila Faye Discharge: Date of : 60 Report #: [id number] is on the chart. Risk assessment is moderate. Functional assessment is 51/70. 5. Recreational drug use. He currently uses marijuana, though he reports none in the past week. He currently smokes a pack of cigarettes a day and denies any alcohol intake. According to the prescription monitoring system, he is due to fill his medications tomorrow. He is filling them in a timely fashion. His morphine milliequivalent is 90 MME according to the CDC guidelines. PHYSICAL EXAMINATION: This is a review of systems due to a telemedicine appointment. He is alert and orientated, answering all my questions appropriately today, rating his pain score at 6/10. States his pain is worse in his neck as well as his lumbar spine that radiates into his hip. He uses a cane for ambulation, complaining of severe abdominal pain with nausea and vomiting as well as diarrhea today. IMPRESSION: 1. Chronic intractable pain with cervicalgia and radiculopathy, status post fusion and diskectomy. 2. Cervical radiculopathy. 3. Chronic low back pain with radiculopathy. 4. Chronic obstructive pulmonary disease. 5. Tobacco habituation. 6. Management of high risk medications under terms of written opioid agreement. PLAN: 1. We discussed treatment options with the patient today. I encouraged the patient to try and drink some small sips of fluid to help from becoming too dehydrated since he is experiencing severe nausea and vomiting and to try sips of Coca-Cola or electrolyte-based products such as Gatorade. The patient will have the look for that in the house. 2. We did discuss withdrawal symptoms since he has not been able to take any of his opioids in the past 24 hours. I explained that methadone has a long half-life, so hopefully he will not experience any withdrawal and encouraged him to take at least 1 pill when he is able to tolerate sips of liquid that are able to stay down for a significant amount of time. 3. We will have Dr. Lenin Cedeno continue his methadone 10 mg t.i.d., #90. These will be sent electronically to his pharmacy to be filled tomorrow to be released 12/07/2020 and again on 01/04/2021. The patient will follow up in January for an appointment. 4. This Telemed appointment was discussed with Dr. Lenin Cedeno who collaborated care today. <ELECTRONICALLY SIGNED> By: Tila Faye 11/09/20 0733 [id number] 1418 Tila Faye /nt
== END ==
LOC: PAIN 06:51 → TELEPC 06:51 → PAIN 12:54
PROVIDERS: ATTEND Clinical Nurse Specialist Adult Health
DX: M54.16 Radiculopathy, lumbar region (principal); M54.12 Radiculopathy, cervical region; J44.9 Chronic obstructive pulmonary disease, unspecified; F17.200 Nicotine dependence, unspecified, uncomplicated; F11.20 Opioid dependence, uncomplicated; Z88.8 Allergy status to other drugs, medicaments and biological substances; Z79.899 Other long term (current) drug therapy

== ENCOUNTER → 2021-01-31 | Outpatient (CLI) | payer OTHER ==
[~2021-01-31] VITALS: Ht 175.3 cm; Wt 57.3 kg
[2021-01-31 08:42] VITALS: BP 108/67
--- NOTE | 2021-01-31 08:51 | NUR ---
Pain Clinic Assessment: 1. History of Osteoarthritis: back neck hips History of Rheumatoid Arthritis: Not Applicable 2. Height: 5 ft. 9 in. 175.3 cm. Weight: 126.4 lb. oz. 57.335 kg. Patient's BMI: 18.7 3. Vital Signs: BP: 108/67 Pulse: 83 Resp: 14 Temp: 02 Sat: 98 ECG Mon: 4. Pain Intensity: 7 5. Fall Risk: Dizziness: Y Needs help standing or walking: Y Fallen in the last 3 months: Y Fall risk comments: walks with cane, 6. Patient on Blood Thinner: None 7. History of Hypertension: Y 8. Opioid Therapy greater than 6 weeks: Y Opiate Contract Signed: 04/18/16 9. Risk Assessment Tool Provided: 7-mod risk 10. Functional Assessment Tool: 11. Recreational Drug Use: Current within past 3 mos Drug Type: MARIJUANA Tobacco Use: Current Every Day Smoker Tobacco Type: Amount or Packs/day: 1 PACK How Many Years: Alcohol Use: Past use Frequency: Quant:
== END ==
LOC: PAIN 06:43
PROVIDERS: ATTEND Clinical Nurse Specialist Adult Health
DX: M54.16 Radiculopathy, lumbar region (principal); G89.29 Other chronic pain; M54.12 Radiculopathy, cervical region; J44.9 Chronic obstructive pulmonary disease, unspecified; R63.4 Abnormal weight loss; F17.200 Nicotine dependence, unspecified, uncomplicated; F11.20 Opioid dependence, uncomplicated; Z88.8 Allergy status to other drugs, medicaments and biological substances; Z79.899 Other long term (current) drug therapy

== ENCOUNTER → 2021-05-09 | Outpatient (CLI) | payer OTHER ==
[~2021-05-09] VITALS: Ht 175.3 cm; Wt 54.9 kg
[2021-05-09 09:58] VITALS: BP 118/66
--- NOTE | 2021-05-09 10:09 | NUR ---
Pain Clinic Assessment: 1. History of Osteoarthritis: back neck hips History of Rheumatoid Arthritis: Not Applicable 2. Height: 5 ft. 9 in. 175.3 cm. Weight: 121.0 lb. oz. 54.885 kg. Patient's BMI: 17.9 3. Vital Signs: BP: 118/66 Pulse: 62 Resp: 14 Temp: 02 Sat: 100 ECG Mon: 4. Pain Intensity: 7 5. Fall Risk: Dizziness: Y Needs help standing or walking: Y Fallen in the last 3 months: Y Fall risk comments: walks with cane, 6. Patient on Blood Thinner: None 7. History of Hypertension: Y 8. Opioid Therapy greater than 6 weeks: Y Opiate Contract Signed: 04/18/16 9. Risk Assessment Tool Provided: 7-mod risk 10. Functional Assessment Tool: 11. Recreational Drug Use: Current within past 3 mos Drug Type: marijuana Tobacco Use: Current Every Day Smoker Tobacco Type: Cigarettes Amount or Packs/day: 1 pack/day How Many Years: 45 Alcohol Use: Past use Frequency: Quant:
== END ==
LOC: PAIN 06:56
PROVIDERS: ATTEND Clinical Nurse Specialist Adult Health
DX: G89.4 Chronic pain syndrome (principal); M54.12 Radiculopathy, cervical region; I10 Essential (primary) hypertension; F12.90 Cannabis use, unspecified, uncomplicated; F17.200 Nicotine dependence, unspecified, uncomplicated; Z79.891 Long term (current) use of opiate analgesic; Z79.899 Other long term (current) drug therapy; Z88.5 Allergy status to narcotic agent; Z88.0 Allergy status to penicillin

== ENCOUNTER → 2021-07-29 | Outpatient (CLI) | payer OTHER ==
[~2021-07-29] VITALS: Ht 175.3 cm; Wt 54.7 kg
[2021-07-29 09:08] VITALS: BP 129/69
--- NOTE | 2021-07-29 09:12 | NUR ---
Pain Clinic Assessment: 1. History of Osteoarthritis: back neck hips History of Rheumatoid Arthritis: Not Applicable 2. Height: 5 ft. 9 in. 175.3 cm. Weight: 120.6 lb. oz. 54.704 kg. Patient's BMI: 17.8 3. Vital Signs: BP: 129/69 Pulse: 60 Resp: 14 Temp: 02 Sat: 99 ECG Mon: 4. Pain Intensity: 7 5. Fall Risk: Dizziness: Y Needs help standing or walking: N Fallen in the last 3 months: Y Fall risk comments: walks with cane, 6. Patient on Blood Thinner: None 7. History of Hypertension: Y 8. Opioid Therapy greater than 6 weeks: Y Opiate Contract Signed: 04/18/16 9. Risk Assessment Tool Provided: 7-mod risk 10. Functional Assessment Tool: 11. Recreational Drug Use: Current within past 3 mos Drug Type: marajuana Tobacco Use: Current Every Day Smoker Tobacco Type: Cigarettes Amount or Packs/day: 1 ppd How Many Years: 48 Alcohol Use: Past use Frequency: Quant:
== END ==
LOC: PAIN 07:02
PROVIDERS: ATTEND Anesthesiology Pain Medicine
DX: G89.29 Other chronic pain (principal); M54.12 Radiculopathy, cervical region; M54.16 Radiculopathy, lumbar region; Z88.0 Allergy status to penicillin; Z88.8 Allergy status to other drugs, medicaments and biological substances; Z79.899 Other long term (current) drug therapy

== ENCOUNTER → 2021-11-14 | Outpatient (CLI) | payer OTHER ==
[~2021-11-14] VITALS: Ht 175.3 cm; Wt 58.8 kg
[2021-11-14 08:26] VITALS: BP 119/61
--- NOTE | 2021-11-14 08:29 | NUR ---
Pain Clinic Assessment: 1. History of Osteoarthritis: back neck hips History of Rheumatoid Arthritis: Not Applicable 2. Height: 5 ft. 9 in. 175.3 cm. Weight: 129.6 lb. oz. 58.786 kg. Patient's BMI: 19.1 3. Vital Signs: BP: 119/61 Pulse: 71 Resp: 16 Temp: 02 Sat: 97 ECG Mon: 4. Pain Intensity: 7 5. Fall Risk: Dizziness: Y Needs help standing or walking: Y Fallen in the last 3 months: Y Fall risk comments: walks with cane, 6. Patient on Blood Thinner: None 7. History of Hypertension: Y 8. Opioid Therapy greater than 6 weeks: Y Opiate Contract Signed: 04/18/16 9. Risk Assessment Tool Provided: 7-mod risk 10. Functional Assessment Tool: 11. Recreational Drug Use: Current within past 3 mos Drug Type: Tobacco Use: Current Every Day Smoker Tobacco Type: Cigarettes Amount or Packs/day: 1 PACK How Many Years: Alcohol Use: Past use Frequency: Quant:
== END ==
LOC: PAIN 07:42
PROVIDERS: ATTEND Clinical Nurse Specialist Adult Health
DX: G89.29 Other chronic pain (principal); M54.16 Radiculopathy, lumbar region; M54.12 Radiculopathy, cervical region; M54.50 Low back pain, unspecified; M54.2 Cervicalgia; M19.011 Primary osteoarthritis, right shoulder; M19.012 Primary osteoarthritis, left shoulder; F17.200 Nicotine dependence, unspecified, uncomplicated; Z88.0 Allergy status to penicillin; Z88.8 Allergy status to other drugs, medicaments and biological substances; Z79.82 Long term (current) use of aspirin; Z79.899 Other long term (current) drug therapy

== ENCOUNTER → 2021-12-09 | Outpatient (CLI) | payer OTHER ==
[~2021-12-09] VITALS: Ht 175.3 cm; Wt 60.3 kg
[2021-12-09 10:20] VITALS: BP 108/64
--- NOTE | 2021-12-09 10:27 | NUR ---
Pain Clinic Assessment: 1. History of Osteoarthritis: back neck hips History of Rheumatoid Arthritis: Not Applicable 2. Height: 5 ft. 9 in. 175.3 cm. Weight: 133.0 lb. oz. 60.328 kg. Patient's BMI: 19.6 3. Vital Signs: BP: 108/64 Pulse: 80 Resp: 14 Temp: 02 Sat: 97 ECG Mon: 4. Pain Intensity: 7 5. Fall Risk: Dizziness: Y Needs help standing or walking: Y Fallen in the last 3 months: N Fall risk comments: walks with cane, 6. Patient on Blood Thinner: None 7. History of Hypertension: Y 8. Opioid Therapy greater than 6 weeks: Y Opiate Contract Signed: 04/18/16 9. Risk Assessment Tool Provided: 7-mod risk 10. Functional Assessment Tool: 11. Recreational Drug Use: Current within past 3 mos Drug Type: MARIJUANA Tobacco Use: Current Every Day Smoker Tobacco Type: Cigarettes Amount or Packs/day: 1 PACK How Many Years: Alcohol Use: Past use Frequency: Quant:
== END | disposition home or self-care (01) ==
LOC: PAIN 11-28 13:45
PROVIDERS: ATTEND Anesthesiology Pain Medicine
DX: M19.011 Primary osteoarthritis, right shoulder (principal); M19.012 Primary osteoarthritis, left shoulder; F17.210 Nicotine dependence, cigarettes, uncomplicated; Z79.899 Other long term (current) drug therapy; Z98.890 Other specified postprocedural states